=== PATIENT | female | born 1930 | race Caucasian/White ===

== ENCOUNTER 2018-01-03 10:34 | Inpatient (IN) | payer MEDICARE, OTHER ==
[~2018-01-03] VITALS: Ht 165.1 cm; Wt 97.4 kg
[~2018-01-03 10:34] MED LIST: ACET325 PO; AMLO5TAB22 PO; BENZ100 PO; CAPT50 PO; CEPH250 PO; COUG100S2 PO; DABI150 PO; DUONI NEB; FURO20 PO; GABA400 PO; KLOR20TA6 PO; METH10003 SL; OS-CTAB3 PO; OXYB5TAB33 PO; PRED10 PO; SENE8.6T PO; SERT-132 PO; SIMV20 PO; SYMB160A INH; VITA-13 PO; [UNRECOGNIZED DRUG - CODE] PO
[2018-01-03 10:49] VITALS: BP 115/69; PULSE 100; RESP 19; TEMP 98.3; O2SAT 94
[2018-01-03] MEDS ORDERED: SODIUM CHLORIDE 0.9% FLUSH 10 ML FLUSH IVF PRN (11:15)
--- NOTE | 2018-01-03 11:21 | PD ---
HPI Chief Complaint: Fall Time Seen by Provider: 11:04 Travel History International Travel<30 days: No Contact w/Intl Traveler<30days: No Traveled to known affect area: No History of Present Illness HPI 87 year old female presents to the emergency department for evaluation of cough , shortness of breath, fevers, generalized weakness. Patient's daughter is at bedside and give a lot of the history. She states the patient has been having a cough for approximately a month. She states that she saw her physician the beginning of December and was given a prescription for Keflex. Her symptoms did not improve. She went back recently and antihistamine was started. Lab work was ordered and chest x-ray was ordered. She states that she was also ordered Levaquin, but this has not yet been started due to the fact that he can get lab work until Thursday. The patient started running fevers up to 100.7 yesterday. She woke up with a low-grade fever this morning as well. The patient reports shortness of breath. She denies chest pain. She got up this morning with the help of an aide at her facility and her legs gave out due to her weakness and she fell. She states she hit her nose against the question of a walker, but did not hit her head. The aide guided her down to the ground. Patient denies any headache. She denies any abdominal pain. She states she was nauseated yesterday, but not today. Patient states she is constipated and has not had a bowel movement in 4 days. She denies any abdominal pain. She reports some chronic low back pain. Patient has PMH of diabetes, CHF, atrial fibrillation, hypertension, diabetes, COPD. No exacerbating or alleviating factors. Moderate severity. PFSH Past Medical History Hx Anticoagulant Therapy: Yes Arthritis: Yes Asthma: No Autoimmune Disease: No Anxiety: Yes Heart Rhythm Problems: Yes (AFIB) Cancer: Yes (BREAST CANCER) Cardiovascular Problems: Yes ([place]) High Cholesterol: No Chemotherapy: No Chest Pain: No Congestive Heart Failure: Yes COPD: No Cerebrovascular Accident: No Diabetes: Yes Patient Takes Glucophage: No Endocrine: Yes Gastrointestinal Disorders: Yes (chronic constipation ) GERD: Yes Genitourinary: No Hiatal Hernia: No Hypertension: Yes Immune Disorder: No Musculoskeletal: Yes Neurologic: No Psychiatric: No Reproductive: No Respiratory: Yes (bronchitis ) Immunizations Current: Yes Migraines: No Radiation Therapy: Yes Seizures: No Sickle Cell Disease: No Sleep Apnea: No Thyroid Disease: Yes Ulcer: No PNEUMOCCOCAL Vaccine (Year): 1 ?: Not Menopausal: Yes Para: 3 Past Surgical History Section: Yes Eye Surgery: Yes (cataracts removed bilateral) Neurologic Surgery: Yes (LUMBAR LAMINECTOMY (2009)) Oral Surgery: Yes (tonsillectomy) Thoracic Surgery: Yes (JUL, AUG 2010) Other Surgery: Yes Social History Alcohol Use: Yes (occ glass of wine) Tobacco Use: No Substance Use: No Allergies-Medications (Allergen,Severity, Reaction): Coded Allergies: albuterol (Verified Allergy, Unknown, 01/03/18) Reported Meds & Prescriptions Reported Meds & Active Scripts Active Reported [place] (Hydrocodone-Acetaminophen) 7.5-325 mg Tab 1 Tab PO QID Vitamin D3 (Cholecalciferol) 1,000 Unit Tab 1,000 Units PO DAILY Celebrex (Celecoxib) 200 Mg Cap 200 Mg PO DAILY Prednisone 10 Mg Tab 10 Mg PO DAILY Losartan (Losartan Potassium) 50 Mg Tab 50 Mg PO DAILY Furosemide 40 Mg Tab 40 Mg PO DAILY Pradaxa (Dabigatran) 150 Mg Cap 150 Mg PO BID Captopril 50 Mg Tab 50 Mg PO BIDAC Take 1 hour before meals. Prilosec (Omeprazole Magnesium) 20 Mg Tab 1 Cap PO DAILY Polyethylene Glycol 3350 Powder (Polyethylene Glycol) 17 Gram Pow 17 Gm PO DAILY Calcium 500 +D (Calcium Carbonate-Cholecalciferol) 500-400 Mg-Unit Tab 1 Tab PO DAILY Docusate Sodium-Senna (Sennosides-Docusate Sodium) 8.6-50 Mg Tab 1 Tab PO HS Potassium Chloride ER (Potassium Chloride) 20 Meq Tab 20 Meq PO DAILY Atrovent HFA 12.9 GM Inh (Ipratropium [place]) 17 Mcg/Actuation Aer 2 Puff INH TID Januvia (Sitagliptin Phosphate) 100 Mg Tab 100 Mg PO DAILY Bumetanide 1 Mg Tab 1 Mg PO DAILY Cymbalta DR (Duloxetine HCl) 20 Mg Capdr 20 Mg PO DAILY Symbicort Inh (Budesonide/Formoterol Fumarate) 160-4.5 Mcg/Act Aero 2 Puff INH Q12HR Vitamin B-12 (Cyanocobalamin) 1,000 Mcg Tab 1,000 Mcg PO DAILY Norvasc (Amlodipine Besylate) 5 Mg Tab 5 Mg PO DAILY Xanax (Alprazolam) 0.25 Mg Tab 0.25 Mg PO DAILY PRN Simvastatin 20 Mg Tab 20 Mg PO DAILY Levothyroxine (Levothyroxine Sodium) 100 Mcg Tab 100 Mcg PO DAILY Gabapentin 300 Mg Cap 300 Mg PO TID Benadryl Allergy (Diphenhydramine HCl) 25 Mg Cap 1 Cap PO DAILY Zoloft (Sertraline HCl) 100 Mg Tab 100 Mg PO DAILY Keflex (Cephalexin) 500 Mg Cap 500 Mg PO TID Review of Systems Except as stated in HPI: all other systems reviewed are Neg Physical Exam Narrative GENERAL: Well-nourished, well-developed female patient, afebrile. SKIN: Focused skin assessment warm/dry. HEAD: Normocephalic. Atraumatic EYES: No scleral icterus. No injection or drainage. NECK: Supple, trachea midline. No JVD or lymphadenopathy. CARDIOVASCULAR: Regular rate and rhythm without murmurs, gallops, or rubs. RESPIRATORY: Breath sounds equal bilaterally. Patient appears short of breath and is tachypneic on exam. Lung sounds diminished throughout GASTROINTESTINAL: Abdomen soft, non-tender, nondistended. MUSCULOSKELETAL: No cyanosis, or edema. BACK: Nontender without obvious deformity. No CVA tenderness. Data Data Last Documented VS Vital Signs Date Time Temp Pulse Resp B/P (MAP) Pulse Ox O2 Delivery O2 Flow Rate FiO2 01/03/18 10:49 98.3 100 19 115/69 (84) 94 Nasal Cannula 2.00 Orders Orders Complete Blood Count With Diff (01/03/18 11:15) Comprehensive Metabolic Panel (01/03/18 11:15) B-Type Natriuretic Peptide (01/03/18 11:15) Act Partial Throm Time (Ptt) (01/03/18 11:15) Prothrombin Time / Inr (Pt) (01/03/18 11:15) Magnesium (Mg) (01/03/18 11:15) Ckmb (Isoenzyme) Profile (01/03/18 11:15) Troponin I (01/03/18 11:15) Urinalysis - C+S If Indicated (01/03/18 11:15) Influenzae A/B Antigen (01/03/18 11:15) Blood Culture (01/03/18 11:15) Iv Access Insert/Monitor (01/03/18 11:15) Electrocardiogram (01/03/18 11:15) Ecg Monitoring (01/03/18 11:15) Oximetry (01/03/18 11:15) Oxygen Administration (01/03/18 11:15) Chest, Single Ap (01/03/18 11:15) Sodium Chloride 0.9% Flush (Ns Flush) (01/03/18 11:15) Lactic Acid Sepsis Protocol (01/03/18 11:15) Cath For Specimen (01/03/18 11:17) Ct Pulmonary Angiogram (01/03/18 ) Sodium Chlorid 0.9% 500 Ml Inj (Ns 500 M (01/03/18 13:00) Urine Culture (01/03/18 11:40) Iodixanol 320 Inj (Rad Ct) (Visipaque 32 (01/03/18 13:40) Ceftriaxone Inj (Rocephin Inj) (01/03/18 14:00) Methylprednisolone So Succ Inj (Solumedr (01/03/18 14:00) Ipratropium Neb (Atrovent Neb) (01/03/18 14:00) Labs Laboratory Tests Test 01/03/18 11:40 White Blood Count 9.4 TH/MM3 Red Blood Count 3.83 MIL/MM3 Hemoglobin 11.9 GM/DL Hematocrit 35.9 % Mean Corpuscular Volume 93.9 FL Mean Corpuscular Hemoglobin 31.0 PG Mean Corpuscular Hemoglobin Concent 33.1 % Red Cell Distribution Width 14.9 % Platelet Count 88 TH/MM3 Mean Platelet Volume 9.8 FL Neutrophils (%) (Auto) 89.7 % Lymphocytes (%) (Auto) 1.5 % Monocytes (%) (Auto) 8.6 % Eosinophils (%) (Auto) 0.1 % Basophils (%) (Auto) 0.1 % Neutrophils # (Auto) 8.4 TH/MM3 Lymphocytes # (Auto) 0.1 TH/MM3 Monocytes # (Auto) 0.8 TH/MM3 Eosinophils # (Auto) 0.0 TH/MM3 Basophils # (Auto) 0.0 TH/MM3 CBC Comment AUTO DIFF Differential Total Cells Counted 100 Neutrophils % (Manual) 64 % Band Neutrophils % 32 % Lymphocytes % 1 % Monocytes % 3 % Neutrophils # (Manual) 9.0 TH/MM3 Differential Comment FINAL DIFF MANUAL Toxic Granulation 1+ Toxic Vacuolation PRESENT Platelet Estimate LOW Platelet Morphology Comment NORMAL Red Cell Morphology Comment NORMAL Prothrombin Time 11.0 SEC Prothromb Time International Ratio 1.1 RATIO Activated Partial Thromboplast Time 25.3 SEC Urine Color YELLOW Urine Turbidity CLOUDY Urine pH 5.5 Urine Specific [place] 1.016 Urine Protein 30 mg/dL Urine Glucose (UA) 300 mg/dL Urine Ketones NEG mg/dL Urine Occult Blood MOD Urine Nitrite NEG Urine Bilirubin NEG Urine Urobilinogen LESS THAN 2.0 MG/DL Urine Leukocyte Esterase LARGE Urine RBC 11 /hpf Urine WBC /hpf Urine WBC Clumps FEW Urine Squamous Epithelial Cells 1 /hpf Urine Transitional Epithelial Cells <1 /hpf Urine Bacteria MANY /hpf Urine Hyaline Casts 23 /lpf Urine Mucus FEW /lpf Microscopic Urinalysis Comment CATH-CULTURE IND Blood Urea Nitrogen 33 MG/DL Creatinine 1.52 MG/DL Random Glucose 374 MG/DL Total Protein 6.4 GM/DL Albumin 2.8 GM/DL Calcium Level 9.1 MG/DL Magnesium Level 1.8 MG/DL Alkaline Phosphatase 97 U/L Aspartate Amino Transf (AST/SGOT) 11 U/L Alanine Aminotransferase (ALT/SGPT) 15 U/L Total Bilirubin 0.5 MG/DL Sodium Level 136 MEQ/L Potassium Level 4.1 MEQ/L Chloride Level 97 MEQ/L Carbon Dioxide Level 30.3 MEQ/L Anion Gap 9 MEQ/L Estimat Glomerular Filtration Rate 32 ML/MIN Lactic Acid Level 1.9 mmol/L Total Creatine Kinase 35 U/L Troponin I LESS THAN 0.02 NG/ML B-Type Natriuretic Peptide 137 PG/ML MDM Medical Decision Making Medical Screen Exam Complete: Yes Emergency Medical Condition: Yes Medical Record Reviewed: Yes Differential Diagnosis Pneumonia versus sepsis versus URI versus influenza versus viral syndrome versus ACS versus electrolyte abnormality Narrative Course 87-year-old female presents to the emergency department via EMS for evaluation of generalized weakness, fever, shortness of breath, cough. According to the nurse, patient's oxygen saturation was 89% on room air upon arrival. EKG, CBC, CMP, BNP, magnesium, CK, troponin, lactic acid, PTT, PT/INR, influenza, UA, blood cultures 2 were ordered and pending. Chest x-ray is ordered and pending. EKG shows atrial fibrillation, heart rate 95, no acute ST change. CBC shows normal WBC count of 9.4, by 32 band neutrophils,, toxic granulation and toxic vacuolation. CMP shows hyperglycemia 374, BUN 33, creatinine 1.52. Magnesium is 1.8. CK is 35. Troponin is less than 0.02. Lactic acid is 1.9. BNP is 137. Coags are unremarkable. Influenza is negative. UA shows large leukocyte Estrace, innumerable WBCs and few WBC clumps with many bacteria. Chest x-ray shows no focal infiltrate or vascular congestion. Patient is given normal saline [address] pulmonary angiogram is ordered and shows No evidence of pulmonary embolism; Minimal scattered fibrotic scarring and peripheral bleb formation bilaterally; Cardiomegaly and coronary artery calcifications; Mild splenomegaly; Degenerative changes, scoliosis and multiple chronic compression deformities involving the thoracic spine; Small hiatal hernia. Patient is given Rocephin 1 g IV for UTI. Her daughter states she has reactions to albuterol. She is given ipratropium nebulizer and Solu-Medrol 125 mg IV. Hospitalist is paged for admission. Diagnosis Primary Impression: Urinary tract infection Qualified Codes: N30.01 - Acute cystitis with hematuria Additional Impressions: COPD exacerbation Hypoxia Admitting Information Admitting Physician Requests: Admit Suni Rosa Jan 03, 2018 11:21
--- NOTE | 2018-01-03 11:42 | RADRPT ---
EXAM DATE/TIME: 01/03/2018 11:25 [facility] COMPARISON: CHEST SINGLE AP, April 02, 2016, 14:12. INDICATIONS : Short of breath, cough MEDICAL HISTORY : Chronic obstructive pulmonary disease. Hypertension Diabetes mellitus type II. SURGICAL HISTORY : None. ENCOUNTER: Initial ACUITY: 2 weeks PAIN SCORE: 0/10 LOCATION: chest FINDINGS: The heart is enlarged. The pulmonary vascular pattern is normal. The lungs are clear. CONCLUSION: Cardiomegaly. No focal infiltrate or pulmonary vascular congestion. Navneet Guevara MD on January 03, 2018 at 11:39 Board Certified Radiologist. This report was verified electronically.
[2018-01-03 12:21] LABS: AUTOMATED NEUTROPHIL # 8.4 TH/MM3 (1.8-7.7); BASOPHIL % 0.1 % (0.0-2.0); EOSINOPHIL % 0.1 % (0.0-4.0); HEMATOCRIT 35.9 % (35.0-46.0); HEMOGLOBIN 11.9 GM/DL (11.6-15.3); LYMPH % 1.5 % (9.0-44.0); LYMPHOCYTE # 0.1 TH/MM3 (1.0-4.8); MEAN CELL VOLUME 93.9 FL (80.0-100.0); MEAN CORPUSCULAR HGB CONC 33.1 % (32.0-36.0); MEAN PLATELET VOLUME 9.8 FL (7.0-11.0); MONO % 8.6 % (0.0-8.0); MONOCYTE # 0.8 TH/MM3 (0-0.9); NEUT % 89.7 % (16.0-70.0); PLATELET COUNT 88 TH/MM3 (150-450); RED BLOOD COUNT 3.83 MIL/MM3 (4.00-5.30); RED CELL DISTRIBUTION WIDTH 14.9 % (11.6-17.2); WHITE BLOOD COUNT 9.4 TH/MM3 (4.0-11.0)
[2018-01-03 12:29] LABS: INTERNATIONAL NORMALIZED RATIO 1.1 RATIO
[2018-01-03] MEDS ORDERED: IPRA17I INH (12:39)
[2018-01-03] MEDS ORDERED: PRED10 PO (12:39)
[2018-01-03] MEDS ORDERED: LEVO100T5 PO (12:39)
[2018-01-03] MEDS ORDERED: SYMB160A INH (12:39)
[2018-01-03] MEDS ORDERED: FURO40TA PO (12:39)
[2018-01-03] MEDS ORDERED: AMLO5 PO (12:39)
[2018-01-03] MEDS ORDERED: PRAD150C PO (12:39)
[2018-01-03] MEDS ORDERED: ZOLO100T PO (12:39)
[2018-01-03] MEDS ORDERED: PRIL20TA2 PO (12:39)
[2018-01-03] MEDS ORDERED: HYDR-3288 PO (12:39)
[2018-01-03] MEDS ORDERED: POLY17S PO (12:39)
[2018-01-03] MEDS ORDERED: GABA300C5 PO (12:39)
[2018-01-03] MEDS ORDERED: BENA25CA4 PO (12:39)
[2018-01-03] MEDS ORDERED: DULO20 PO (12:39)
[2018-01-03] MEDS ORDERED: POTA-163 PO (12:39)
[2018-01-03] MEDS ORDERED: CAPT50TA PO (12:39)
[2018-01-03] MEDS ORDERED: DOCU8.6T PO (12:39)
[2018-01-03] MEDS ORDERED: CELE200C PO (12:39)
[2018-01-03] MEDS ORDERED: VITA100018 PO (12:39)
[2018-01-03] MEDS ORDERED: BUME1TAB PO (12:39)
[2018-01-03] MEDS ORDERED: ALPR.25 PO (12:39)
[2018-01-03] MEDS ORDERED: VITA10002 PO (12:39)
[2018-01-03] MEDS ORDERED: LOSA50TA PO (12:39)
[2018-01-03] MEDS ORDERED: SIMV20TA PO (12:39)
[2018-01-03] MEDS ORDERED: SITA1TAB2 PO (12:39)
[2018-01-03] MEDS ORDERED: CEPH-460 PO (12:39)
[2018-01-03] MEDS ORDERED: CALC1TAB12 PO (12:39)
[2018-01-03 12:43] LABS: ALBUMIN 2.8 GM/DL (3.4-5.0); ALT (GPT) 15 U/L (10-53); AST (GOT) 11 U/L (15-37); BICARBONATE 30.3 MEQ/L (21.0-32.0); BLOOD UREA NITROGEN 33 MG/DL (7-18); CALCIUM 9.1 MG/DL (8.5-10.1); CHLORIDE 97 MEQ/L (98-107); CREATININE 1.52 MG/DL (0.50-1.00); GLOMERULAR FILTRATION RATE 32 ML/MIN (>89); GLUCOSE,RANDOM 374 MG/DL (74-106); MAGNESIUM 1.8 MG/DL (1.5-2.5); SODIUM (NA) 136 MEQ/L (136-145)
[2018-01-03 12:46] LABS: ALKALINE PHOSPHATASE 97 U/L (45-117); TOTAL BILIRUBIN ADULT 0.5 MG/DL (0.2-1.0); TOTAL PROTEIN 6.4 GM/DL (6.4-8.2); TROPONIN I LESS THAN 0.02 NG/ML (0.02-0.05)
[2018-01-03 12:52] LABS: BACTERIA, URINE MANY /hpf; BILIRUBIN, URINE NEG (NEG); BLOOD, URINE MOD (NEG); GLUCOSE,URINE 300 mg/dL (NEG); HYALINE CAST, URINE 23 /lpf (RARE); KETONE, URINE NEG (NEG); MUCUS URINE FEW /lpf (OCC); NITRITE,URINE NEG (NEG); PH, URINE 5.5 (5.0-8.5); SQUAMOUS EPITHELIAL CELL URINE 1 /hpf (0-5); TRANSITIONAL EPI CELLS, URINE <1 /hpf; URINE COLOR YELLOW (YELLW/STRAW); URINE LEUKOCYTE ESTERASE LARGE (NEG); WHITE BLOOD CELL CLUMPS FEW
[2018-01-03] MEDS ORDERED: SODIUM CHLORID 0.9% 500 ML INJ 500 ML IV ONE (13:00)
[2018-01-03 13:11] LABS: BANDS 32 % (0-6); LYMPHOCYTES 1 % (9-44); MONOCYTES 3 % (0-8); POLYS (SEG NEUTROPHILS) 64 % (16-70); TOXIC GRANULATION 1+ (NORMAL); TOXIC VACUOLATION PRESENT (NONE SEEN)
[2018-01-03] MEDS ORDERED: IODIXANOL 320 MG/ML 10 ML VIAL (for Rad CT) IVCONTRAST ONE (13:40)
--- NOTE | 2018-01-03 13:50 | RADRPT ---
EXAM DATE/TIME: 01/03/2018 13:21 [facility] COMPARISON: No previous studies available for comparison. INDICATIONS : General weakness, cough,recent fall. IV CONTRAST: 50 cc Visipaque (iodixanol) IV RADIATION DOSE: 6.02 CTDIvol (mGy) MEDICAL HISTORY : Cardiovascular disease. Congestive heart failure. Hypertension.Ca breast,GERD,Diabetes,Rad Tx SURGICAL HISTORY : Cataracts ENCOUNTER: Initial ACUITY: 3 days PAIN SCALE: 0/10 LOCATION: chest TECHNIQUE: Volumetric scanning of the chest was performed using a pulmonary embolism protocol MIP images were re constructed. Using automated exposure control and adjustment of the mA and/or kV according to patien t size, radiation dose was kept as low as reasonably achievable to obtain optimal diagnostic quality images. DICOM format image data is available electronically for review and comparison. Follow-up recommendations for detected pulmonary nodules are based at a minimum on nodule size and pa tient risk factors according to Fleischner Society Guidelines. FINDINGS: PULMONARY ARTERIES: No filling defects are seen in the pulmonary arteries through the segmental level. LUNGS: Scattered peripheral fibrotic scarring and minimal subpleural bleb formation is noted bilaterally. No focal infiltrate or congestion is noted. No pulmonary nodule or mass is noted. PLEURAE: There is no pleural thickening or pleural effusion. MEDIASTINUM: There is good visualization of the great vessels of the middle mediastinum. No evidence of mediastin al or hilar adenopathy/mass. Cardiomegaly and coronary artery calcifications are noted. MUSCULOSKELETAL: Degenerative changes, scoliosis and multiple chronic compression deformities are noted within the tho racic spine. MISCELLANEOUS: The visualized upper abdominal organs demonstrate no acute abnormality. Small hiatal hernia is noted. Mild splenomegaly is noted. CONCLUSION: 1. No evidence of pulmonary embolism. 2. Minimal scattered fibrotic scarring and peripheral bleb formation bilaterally. 3. Cardiomegaly and coronary artery calcifications. 4. Mild splenomegaly. 5. Degenerative changes, scoliosis and multiple chronic compression deformities involving the thoraci c spine. 6. Small hiatal hernia. Navneet Guevara MD on January 03, 2018 at 13:39 Board Certified Radiologist. This report was verified electronically.
[2018-01-03] MEDS ORDERED: methylPREDNISolone SOD SUCC 125 MG/2 ML VIAL IV PUSH ONE (14:00)
[2018-01-03] MEDS ORDERED: RESP: IPRATROPIUM 0.5 MG/2.5 ML NEB NEB ONE (14:00)
[2018-01-03] MEDS ORDERED: cefTRIAXone INJ 1,000 MG in SODIUM CHLORIDE 0.9% INJ 100 ML IV ONE (14:00)
[2018-01-03] MEDS ORDERED: ONDANSETRON HCL 4 MG/2 ML VIAL IVP PRN (15:15)
[2018-01-03] MEDS ORDERED: SENNOSIDES 8.6 MG TAB PO PRN (15:15)
[2018-01-03] MEDS ORDERED: RESP: IPRATROPIUM 0.5 MG/2.5 ML NEB NEB PRN (15:15)
[2018-01-03] MEDS ORDERED: NALOXONE HCL 0.4 MG/ML AMP IV PUSH PRN (15:15)
[2018-01-03] MEDS ORDERED: MAGNESIUM HYDROXIDE SUSP 30 ML CUP PO PRN ×2 (15:15→18:15)
[2018-01-03] MEDS ORDERED: LACTULOSE SYRUP 20 GM/30 ML CUP PO PRN (15:15)
[2018-01-03] MEDS ORDERED: SODIUM CHLORIDE 0.9% FLUSH 10 ML FLUSH IV FLUSH PRN (15:15)
[2018-01-03] MEDS ORDERED: BISACODYL 10 MG SUPP RECTAL PRN (15:15)
[2018-01-03] MEDS: RESP: IPRATROPIUM 0.5 MG/2.5 ML NEB NEB SCH (15:44)
[2018-01-03] MEDS ORDERED: LEVEMIR SQ (15:48)
[2018-01-03] MEDS ORDERED: DEXTROSE 50% IN WATER 50 ML VIAL(D50) IV PUSH PRN ×2 (16:00→17:45)
[2018-01-03] MEDS ORDERED: GLUCAGON 1 MG/ML VIAL OTHER PRN ×2 (16:00→17:45)
[2018-01-03] MEDS ORDERED: HEPARIN SODIUM - SQ 10,000 UNITS/ML VIAL SQ SCH (17:00)
[2018-01-03] MEDS: cefTRIAXone INJ 1,000 MG in SODIUM CHLORIDE 0.9% INJ 100 ML IV SCH (17:00)
[2018-01-03] MEDS ORDERED: INSULIN ASPART SUPPLEMENTAL SCALE SQ SCH (17:00)
[2018-01-03 17:17] VITALS: BP 169/86; PULSE 92; RESP 23; O2SAT 93
[2018-01-03] MEDS ORDERED: ALPRAZolam 0.25 MG TAB PO PRN (17:30)
[2018-01-03 17:36] VITALS: BP 120/70; PULSE 91; RESP 18; TEMP 98.2; O2SAT 93
--- NOTE | 2018-01-03 17:43 | HHI.HP ---
[facility] Santos Aguirre M.D. Admission Diagnosis UTI, COPD exacerbation Diagnoses: Travel History International Travel<30 Days: No Contact w/Intl Traveler <30 Da: No Traveled to Known Affected Are: No History of Present Illness Patient is an 87-year-old female with past medical history of hypothyroidism, CHF, atrial fibrillation, hypertension, diabetes insulin-dependent, anxiety, hyperlipidemia, chronic back pain who presented to the emergency room because she was not feeling well and has been progressively feeling more and more tired. She states that she woke up yesterday, felt sick to her stomach with nausea. She denies any vomiting at that time. She states she has been sick for 3 weeks, feeling "lousy ". She has been working with her physical therapists trying to get strong enough however she has been progressively feeling weaker. Yesterday she could not get out of bed. She has been having a "hacking cough", nonproductive, for the past 4 weeks. She was put on Keflex at the beginning of December with no improvement. She went to see her primary care physician because she could not get in to see her turf manager Dr. Le fast enough and was started on an antihistamine. She has not started it yet. She had a chest x-ray which was read as negative. Patient complains of shortness of breath. Patient also complains of chills and was told she had a fever of 100.7 by the nurse that came to see her at her house. Her appetite is poor. She denies any burning with urination however she has urinary incontinence therefore she cannot tell she has urinary frequency. Review of Systems Except as stated in HPI: all other systems reviewed are Neg Past Family Social History Past Medical History hypothyroidism, CHF, atrial fibrillation, hypertension, diabetes insulin- dependent, anxiety, hyperlipidemia, chronic back pain Past Surgical History Cataract surgery, tonsillectomy, lumbar laminectomy in 2010, right breast lumpectomy, left femoral embolectomy complicated by abscess formation and status post I&D Allergies: Coded Allergies: albuterol (Verified Allergy, Unknown, 01/03/18) Family History Mother and father had heart issues. Mother at age 91, had CVAs and fall Social History Smoked for 2 years many many years ago, states she smoked less than a pack a day. Will drink wine 2 times a week. Denies illegal drug use Physical Exam Vital Signs Vital Signs Date Time Temp Pulse Resp B/P (MAP) Pulse Ox O2 Delivery O2 Flow Rate FiO2 01/03/18 17:23 01/03/18 17:17 92 23 169/86 (113) 93 01/03/18 10:49 98.3 100 19 115/69 (84) 94 Nasal Cannula 2.00 01/03/18 10:49 Nasal Cannula 2.00 Physical Exam GENERAL: Pleasant elderly female, appears weak, mild hoarseness noted when pt talks SKIN: No rashes. Cool and dry. HEAD: Atraumatic. Normocephalic. EYES: Pupils equal round and reactive. Extraocular motions intact. No scleral icterus. No injection or drainage. ENT: Nose without drainage. Throat without erythema, tonsillar hypertrophy or exudate. Uvula midline. Airway patent. NECK: Trachea midline. CARDIOVASCULAR: Irregularly irregular with no murmurs RESPIRATORY: Decreased breath sounds and somewhat distant. No wheezing, no crackles. Patient does pause to complete her sentences. GASTROINTESTINAL: Abdomen soft, obese, non-tender, nondistended. No guarding. MUSCULOSKELETAL: Extremities without edema. Moves extremities with no difficulty. Uses a walker as baseline. NEUROLOGICAL: Awake and alert. Normal speech. Laboratory Laboratory Tests Test 01/03/18 11:40 White Blood Count 9.4 Red Blood Count 3.83 Hemoglobin 11.9 Hematocrit 35.9 Mean Corpuscular Volume 93.9 Mean Corpuscular Hemoglobin 31.0 Mean Corpuscular Hemoglobin Concent 33.1 Red Cell Distribution Width 14.9 Platelet Count 88 Mean Platelet Volume 9.8 Neutrophils (%) (Auto) 89.7 Lymphocytes (%) (Auto) 1.5 Monocytes (%) (Auto) 8.6 Eosinophils (%) (Auto) 0.1 Basophils (%) (Auto) 0.1 Neutrophils # (Auto) 8.4 Lymphocytes # (Auto) 0.1 Monocytes # (Auto) 0.8 Eosinophils # (Auto) 0.0 Basophils # (Auto) 0.0 CBC Comment AUTO DIFF Differential Total Cells Counted 100 Neutrophils % (Manual) 64 Band Neutrophils % 32 Lymphocytes % 1 Monocytes % 3 Neutrophils # (Manual) 9.0 Differential Comment FINAL DIFF MANUAL Toxic Granulation 1+ Toxic Vacuolation PRESENT Platelet Estimate LOW Platelet Morphology Comment NORMAL Red Cell Morphology Comment NORMAL Prothrombin Time 11.0 Prothromb Time International Ratio 1.1 Activated Partial Thromboplast Time 25.3 Urine Color YELLOW Urine Turbidity CLOUDY Urine pH 5.5 Urine Specific [place] 1.016 Urine Protein 30 Urine Glucose (UA) 300 Urine Ketones NEG Urine Occult Blood MOD Urine Nitrite NEG Urine Bilirubin NEG Urine Urobilinogen LESS THAN 2.0 Urine Leukocyte Esterase LARGE Urine RBC 11 Urine WBC Urine WBC Clumps FEW Urine Squamous Epithelial Cells 1 Urine Transitional Epithelial Cells <1 Urine Bacteria MANY Urine Hyaline Casts 23 Urine Mucus FEW Microscopic Urinalysis Comment CATH-CULTURE IND Blood Urea Nitrogen 33 Creatinine 1.52 Random Glucose 374 Total Protein 6.4 Albumin 2.8 Calcium Level 9.1 Magnesium Level 1.8 Alkaline Phosphatase 97 Aspartate Amino Transf (AST/SGOT) 11 Alanine Aminotransferase (ALT/SGPT) 15 Total Bilirubin 0.5 Sodium Level 136 Potassium Level 4.1 Chloride Level 97 Carbon Dioxide Level 30.3 Anion Gap 9 Estimat Glomerular Filtration Rate 32 Lactic Acid Level 1.9 Total Creatine Kinase 35 Troponin I LESS THAN 0.02 B-Type Natriuretic Peptide 137 Date/Time Source Procedure Growth Status 01/03/18 11:40 Blood Peripheral Aerobic Blood Culture Pending Received 01/03/18 11:40 Blood Peripheral Anaerobic Blood Culture Pending Received 01/03/18 11:40 Nasal Aspirate Influenza Types A,B Antigen (LENNIE) - Final NEGATIVE FOR FLU A AND B ANTIGEN.... Complete 01/03/18 11:40 Urine Catheterized Urine Urine Culture Pending Received Result Diagram: 01/03/18 1140 01/03/18 1140 Caprini VTE Risk Assessment Caprini VTE Risk Assessment: Mod/High Risk (score >= 2) Caprini Risk Assessment Model Point Value = 1 Point Value = 2 Point Value = 3 Point Value = 5 Age 41-60 Minor surgery BMI > 25 kg/m2 Swollen legs Varicose veins or History of unexplained or recurrent spontaneous Oral contraceptives or hormone replacement Sepsis (< 1 month) Serious lung disease, including pneumonia (< 1 month) Abnormal pulmonary function Acute myocardial infarction Congestive heart failure (< 1 month) History of inflammatory bowel disease Medical patient at bed rest Age 61-74 Arthroscopic surgery Major open surgery (> 45 min) Laparoscopic surgery (> 45 min) Malignancy Confined to bed (> 72 hours) Immobilizing plaster cast Central venous access Age >= 75 History of VTE Family history of VTE Factor V Leiden Prothrombin [id number] Lupus anticoagulant Anticardiolipin antibodies Elevated serum homocysteine Heparin-induced thrombocytopenia Other congenital or acquired thrombophilia Stroke (< 1 month) Elective arthroplasty Hip, pelvis, or leg fracture Acute spinal cord injury (< 1 month) Prophylaxis Regimen Total Risk Factor Score Risk Level Prophylaxis Regimen 0-1 Low Early ambulation 2 Moderate Order ONE of the following: *Sequential Compression Device (SCD) *Heparin 5000 units SQ BID 3-4 Higher Order ONE of the following medications: *Heparin 5000 units SQ TID *Enoxaparin/Lovenox 40 mg SQ daily (WT < 150 kg, CrCl > 30 mL/min) *Enoxaparin/Lovenox 30 mg SQ daily (WT < 150 kg, CrCl > 10-29 mL/min) *Enoxaparin/Lovenox 30 mg SQ BID (WT < 150 kg, CrCl > 30 mL/min) AND/OR *Sequential Compression Device (SCD) 5 or more Highest Order ONE of the following medications: *Heparin 5000 units SQ TID (Preferred with Epidurals) *Enoxaparin/Lovenox 40 mg SQ daily (WT < 150 kg, CrCl > 30 mL/min) *Enoxaparin/Lovenox 30 mg SQ daily (WT < 150 kg, CrCl > 10-29 mL/min) *Enoxaparin/Lovenox 30 mg SQ BID (WT < 150 kg, CrCl > 30 mL/min) AND *Sequential Compression Device (SCD) Assessment and Plan Assessment and Plan 87-year-old female with: 1- sepsis/UTI: Heart rate at 100, no leukocytosis however she does have bandemia at 32, source would be a UTI. UA with large leukocyte esterase, many bacteria, and innumerable WBC with clumps. Urine culture and blood cultures pending. Patient had a temperature of 100.7 at home. None recorded here in the emergency room. Repeat CBC in the morning. We will treat with Rocephin IV every 24 hours. 2- COPD exacerbation: s/p 125mg IV solu-medrol in ED. Continue breather treatments ipratropium scheduled and prn. consult Dr. Le, pt's pulm per pt' s request. Pt known to him. Pt did try to get to see him in his office but couldn't get in soon enough. added flonase for possible post nasal gtt, continue home symbicort. add azithromycin, has had a cough x 4 weeks not responding to keflex. 3-hypothyroidism: Resume patient's home dose of Synthroid 4- CHF: Stable. Heart healthy diet with fluid restriction at 1500 mL's per day. Continue patient's the Lasix. Replete potassium and continues potassium supplementation. 5-ESRD stage III per daughter: Creatinine noted to be 1.52 with baseline of 0.82 on 04/03/16 per records (no recent Cr available). Patient does not follow with a ladle builder. 6- Atrial fibrillation: Stable. continue pradaxa. Apparently per daughter she was supposed to be on digoxin however this is not listed on [facility] MAR. At this time, since pt does have hx of CHF, will place her on metoprolol 25mg po BID w holding parameters. Daughter to bring med rec as from my review of pt' s MAR at [facility], there are some concerns that this med rec may have not been reviewed. ( i.e pt being on both lasix and bumex, captopril/losartan...). 7- Hypertension: continue captopril, amlodipine. (per daughter pt does have stage III renal disease) 8. Diabetes insulin-dependent: resume pt's home dose of levemir. cover w medium ISS. continue Januvia but renally dose it. monitor BS. 9- anxiety: resume med 10- Hyperlipidemia: resume med 11-Chronic back pain: resume home meds. resume stool softeners as well. DVT proph: pradaxa Code Status full Discussed Condition With Pt, Her daughter, ER staff Eliza Mccormick MD Jan 03, 2018 17:43
[2018-01-03] MEDS: ACETAMINOPHEN/HYDROcodone 325 MG/7.5 MG TAB PO SCH ×2 (18:04→22:23)
[2018-01-03] MEDS: GABAPENTIN 300 MG CAP PO SCH (18:04)
[2018-01-03] MEDS: SODIUM CHLOR 0.9% 1000 ML INJ 1,000 ML IV SCH (18:18)
[2018-01-03] MEDS: AZITHROMYCIN 250 MG TAB PO SCH (18:24)
[2018-01-03 19:46] VITALS: PULSE 86
[2018-01-03 20:00] VITALS: BP 117/72; PULSE 96; RESP 18; TEMP 98.1; O2SAT 95
[2018-01-03] MEDS ORDERED: DOCUSATE SODIUM 50 MG/SENNA 8.6 MG TAB PO SCH (21:00)
[2018-01-03] MEDS: METOPROLOL TARTRATE 25 MG TAB PO SCH (22:23)
[2018-01-03] MEDS: DOCUSATE SODIUM 50 MG/SENNA 8.6 MG TAB PO SCH (22:25)
[2018-01-03] MEDS: DABIGATRAN ETEXILATE 150 MG CAP PO SCH (22:25)
[2018-01-03] MEDS: SODIUM CHLORIDE 0.9% FLUSH 10 ML FLUSH IV FLUSH SCH (22:26)
[2018-01-03] MEDS: INSULIN ASPART SUPPLEMENTAL SCALE SQ SCH (22:30)
[2018-01-03] MEDS: BUDESONIDE-FORMOTEROL 160/4.5 MCG INHALER INH SCH (22:43)
[2018-01-03 23:42] VITALS: PULSE 87
[2018-01-04] VITALS (15 sets, daily range): BP systolic 98–152; BP diastolic 52–80; PULSE 68–91; RESP 18–24; TEMP 97.3–98.3; O2SAT 93–98
[2018-01-04] MEDS: RESP: IPRATROPIUM 0.5 MG/2.5 ML NEB NEB SCH ×4 (03:38→19:31)
[2018-01-04] MEDS: SODIUM CHLOR 0.9% 1000 ML INJ 1,000 ML IV SCH ×2 (05:14→17:49)
[2018-01-04] MEDS: CAPTOPRIL 50 MG TAB PO SCH ×2 (05:15→17:50)
[2018-01-04 05:40] LABS: BICARBONATE 29.4 MEQ/L (21.0-32.0); CALCIUM 8.5 MG/DL (8.5-10.1); CREATININE 1.18 MG/DL (0.50-1.00)
[2018-01-04 06:21] LABS: AUTOMATED NEUTROPHIL # 8.8 TH/MM3 (1.8-7.7); BASOPHIL % 0.1 % (0.0-2.0); HEMATOCRIT 35.5 % (35.0-46.0); HEMOGLOBIN 11.8 GM/DL (11.6-15.3); LYMPH % 3.3 % (9.0-44.0); LYMPHOCYTE # 0.3 TH/MM3 (1.0-4.8); MEAN CELL VOLUME 93.2 FL (80.0-100.0); MEAN CORPUSCULAR HEMOGLOBIN 31.1 PG (27.0-34.0); MEAN CORPUSCULAR HGB CONC 33.3 % (32.0-36.0); MEAN PLATELET VOLUME 9.8 FL (7.0-11.0); MONO % 4.7 % (0.0-8.0); MONOCYTE # 0.4 TH/MM3 (0-0.9); NEUT % 91.9 % (16.0-70.0); PLATELET COUNT 100 TH/MM3 (150-450); RED BLOOD COUNT 3.81 MIL/MM3 (4.00-5.30); RED CELL DISTRIBUTION WIDTH 14.7 % (11.6-17.2); WHITE BLOOD COUNT 9.6 TH/MM3 (4.0-11.0)
[2018-01-04] MEDS: INSULIN ASPART SUPPLEMENTAL SCALE SQ SCH ×4 (09:15→21:00)
[2018-01-04] MEDS: SODIUM CHLORIDE 0.9% FLUSH 10 ML FLUSH IV FLUSH SCH ×2 (09:16→21:00)
[2018-01-04] MEDS: POTASSIUM CHLORIDE 20 MEQ CONTROLLED RELEASE TAB PO SCH (09:16)
[2018-01-04] MEDS: predniSONE 10 MG TAB PO SCH (09:16)
[2018-01-04] MEDS: BUDESONIDE-FORMOTEROL 160/4.5 MCG INHALER INH SCH ×2 (09:16→21:51)
[2018-01-04] MEDS: DULoxetine HCl DR 20 MG CAP PO SCH (09:16)
[2018-01-04] MEDS: METOPROLOL TARTRATE 25 MG TAB PO SCH ×2 (09:17→21:00)
[2018-01-04] MEDS: POLYETHYLENE GLYCOL 17 GM PKG PO SCH (09:17)
[2018-01-04] MEDS: GABAPENTIN 300 MG CAP PO SCH ×3 (09:17→17:50)
[2018-01-04] MEDS: FUROSEMIDE 40 MG TAB PO SCH (09:17)
[2018-01-04] MEDS: LEVOTHYROXINE SODIUM 100 MCG TAB PO SCH (09:18)
[2018-01-04] MEDS: PANTOPRAZOLE SOD 20 MG DELAYED RELEASE TAB PO SCH (09:18)
[2018-01-04] MEDS: amLODIPine BESYLATE 5 MG TAB PO SCH (09:18)
[2018-01-04] MEDS: DABIGATRAN ETEXILATE 150 MG CAP PO SCH ×2 (09:18→21:48)
[2018-01-04] MEDS: CHOLECALCIFEROL (VIT D3) 1000 UNIT TAB PO SCH (09:18)
[2018-01-04] MEDS: AZITHROMYCIN 250 MG TAB PO SCH (09:18)
[2018-01-04] MEDS: ACETAMINOPHEN/HYDROcodone 325 MG/7.5 MG TAB PO SCH ×4 (09:18→21:50)
[2018-01-04] MEDS: SERTRALINE HCL 100 MG TAB PO SCH (09:19)
[2018-01-04] MEDS: PRAVASTATIN SOD 40 MG TAB PO SCH (09:19)
[2018-01-04] MEDS: INSULIN DETEMIR 100 UNITS/ML VIAL SQ SCH (09:20)
--- NOTE | 2018-01-04 14:03 | HHI.PR ---
Subjective Remarks "I am feeling little better " Patient on O2 nasal cannula, creatinine improved from 1.5-1.18 Afebrile Objective Vitals Vital Signs Date Time Temp Pulse Resp B/P (MAP) Pulse Ox O2 Delivery O2 Flow Rate FiO2 01/04/18 12:04 98.3 84 22 152/80 (104) 94 01/04/18 11:26 95 Nasal Cannula 2.00 01/04/18 08:26 95 Nasal Cannula 1.00 01/04/18 08:04 97.7 86 24 147/77 (100) 96 01/04/18 05:15 98.0 86 18 147/70 (95) 96 01/04/18 03:42 78 01/04/18 03:41 97 Nasal Cannula 2.00 01/04/18 00:00 97.3 91 18 144/66 (92) 94 01/04/18 00:00 Nasal Cannula 2.00 01/03/18 23:42 87 01/03/18 20:00 Nasal Cannula 2.00 01/03/18 20:00 98.1 96 18 117/72 (87) 95 01/03/18 19:46 86 01/03/18 17:36 98.2 91 18 120/70 (87) 93 01/03/18 17:23 01/03/18 17:17 92 23 169/86 (113) 93 I/O 01/03/18 01/03/18 01/03/18 01/04/18 01/04/18 01/04/18 07:00 15:00 23:00 07:00 15:00 23:00 Intake Total 868 ml Balance 868 ml Intake IV Total 868 ml # Voids 4 # Bowel Movements 1 Result Diagram: 01/04/1841901/04/18419 Objective Remarks GENERAL: This is a well-nourished, well-developed patient, in no apparent distress. SKIN: No rashes, warm and dry HEAD: Atraumatic. Normocephalic. EYES: Pupils equal round and reactive. Extraocular motions intact. No scleral icterus. ENT: Nose without bleeding, or drainage, Airway patent. NECK: Trachea midline. Supple CARDIOVASCULAR: Regular rate and rhythm without murmurs, gallops, or rubs. RESPIRATORY: Bilateral GASTROINTESTINAL: Abdomen soft, non-tender, nondistended. Positive bowel sounds MUSCULOSKELETAL: Extremities without clubbing, cyanosis, positive trace edema. Pedal pulses appreciated NEUROLOGICAL: Awake and alert. Moves all extremity. Normal speech.no focal neurological deficit A/P Assessment and Plan 87-year-old female with: 01/04: Continue current care with antibiotic awaiting pulmonary consultation, consider consult cardiology for CHF 1- sepsis/UTI: Heart rate at 100, no leukocytosis however she does have bandemia at 32, source would be a UTI. UA with large leukocyte esterase, many bacteria, and innumerable WBC with clumps. Urine culture and blood cultures pending. Patient had a temperature of 100.7 at home. None recorded here in the emergency room. Repeat CBC in the morning. Continue Rocephin IV every 24 hours. 2- COPD exacerbation: s/p 125mg IV solu-medrol in ED. Continue breather treatments ipratropium scheduled and prn. consult Dr. Le, pt's pulm per pt' s request. Pt known to him. Pt did try to get to see him in his office but couldn't get in soon enough. added flonase for possible post nasal gtt, continue home symbicort. add azithromycin, has had a cough x 4 weeks not responding to keflex. 3-hypothyroidism: Resume patient's home dose of Synthroid 4- CHF: Stable. Heart healthy diet with fluid restriction at 1500 mL's per day. Continue patient's the Lasix. Replete potassium and continues potassium supplementation. 5-ESRD stage III per daughter: Creatinine noted to be 1.52 with baseline of 0.82 on 04/03/16 per records (no recent Cr available). Patient does not follow with a solder technician. 6- Atrial fibrillation: Stable. continue pradaxa. Apparently per daughter she was supposed to be on digoxin however this is not listed on [facility] MAR. At this time, since pt does have hx of CHF, will place her on metoprolol 25mg po BID w holding parameters. Daughter to bring med rec as from my review of pt' s MAR at [facility], there are some concerns that this med rec may have not been reviewed. ( i.e pt being on both lasix and bumex, captopril/losartan...). 7- Hypertension: continue captopril, amlodipine. (per daughter pt does have stage III renal disease) 8. Diabetes insulin-dependent: resume pt's home dose of levemir. cover w medium ISS. continue Januvia but renally dose it. monitor BS. 9- anxiety: resume med 10- Hyperlipidemia: resume med 11-Chronic back pain: resume home meds. resume stool softeners as well. Malik Vitale MD Jan 04, 2018 14:03
[2018-01-04] MEDS: cefTRIAXone INJ 1,000 MG in SODIUM CHLORIDE 0.9% INJ 100 ML IV SCH (17:51)
[2018-01-04] MEDS: RESP: ALBUTEROL 2.5 MG/IPRATROPIUM 0.5 MG NEB (SCH) NEB (19:17)
[2018-01-04] MEDS: FLUTICASONE PROPIONATE 50 MCG/ACT 16 GM NASAL SPRAY EACH NARE SCH (21:00)
[2018-01-04] MEDS: DOCUSATE SODIUM 50 MG/SENNA 8.6 MG TAB PO SCH (21:50)
[2018-01-05] VITALS (10 sets, daily range): BP systolic 106–140; BP diastolic 59–80; PULSE 63–87; RESP 18–20; TEMP 97.5–98.5; O2SAT 92–99
--- NOTE | 2018-01-05 00:33 | EKG ---
Date Performed: 01/03/2018 Time Performed: 11:54:36 PTAGE: 87 years EKG: ATRIAL FIBRILLATION INFERIOR MYOCARDIAL INFARCTION ABNORMAL ECG PREVIOUS TRACING : 04/01/2016 17.21 DOCTOR: Elfego Espinoza Interpretating Date/Time 01/05/2018 00:17:23
[2018-01-05] MEDS: RESP: IPRATROPIUM 0.5 MG/2.5 ML NEB NEB SCH ×2 (04:00→21:33)
[2018-01-05] MEDS: CAPTOPRIL 50 MG TAB PO SCH ×2 (06:07→17:41)
[2018-01-05] MEDS: INSULIN ASPART SUPPLEMENTAL SCALE SQ SCH ×4 (08:00→22:00)
[2018-01-05] MEDS: RESP: ALBUTEROL 2.5 MG/IPRATROPIUM 0.5 MG NEB (SCH) NEB ×4 (08:14→19:58)
[2018-01-05] MEDS: SODIUM CHLORIDE 0.9% FLUSH 10 ML FLUSH IV FLUSH SCH ×2 (09:00→20:22)
[2018-01-05] MEDS: BUDESONIDE-FORMOTEROL 160/4.5 MCG INHALER INH SCH ×2 (09:18→20:21)
[2018-01-05] MEDS: SODIUM CHLOR 0.9% 1000 ML INJ 1,000 ML IV SCH ×2 (09:18→20:29)
--- NOTE | 2018-01-05 09:34 | MB ---
cc: Miko Le MD DATE: 01/04/2018 REASON FOR CONSULTATION: COPD. HISTORY OF PRESENT ILLNESS: This is an 87-year-old white female with a longstanding history of CHF, COPD, diabetes, hypertension, he has hyperlipidemia, has been brought to the emergency room with progressive weakness, shortness of breath and nausea. The patient also had some vomiting and was coughing and could not get out of bed, apparently fell and hit her face on the door and subsequently had to be brought to the ER for evaluation. She has been on oral Keflex and antihistamine. A chest x-ray that was done upon admission only showed some increased haziness at the lung bases, but otherwise unremarkable. The patient also was febrile upon admission and was suspected to have either a pneumonia or UTI. Since admission, she has been on oxygen at 3 liters nasal cannula and also has been started on antibiotic coverage and seems to be feeling better since earlier this morning. She is coughing up clear mucus. She denied any chest pains, but does have some urinary frequency. Leg swelling apparently has gone down. She has been given IV Solu-Medrol upon admission, but still has some wheezing and is receiving nebulized DuoNeb solution and on a nasal spray, as well as Symbicort. PAST MEDICAL HISTORY: Has included hypertension, diabetes mellitus, insulin-dependent, history of hyperlipidemia and hypothyroidism, atrial fibrillation and CHF, as well as chronic back pain. PAST SURGICAL HISTORY: Includes tonsillectomy, lumbar laminectomy, right breast lumpectomy for carcinoma, history of left femoral embolectomy, prior history of abscess of the groin, as well as cellulitis of the legs and history of cataract repair. ALLERGIES: ALBUTEROL. HABITS: The patient smoked remotely for 2-3 years, but then stopped. Alcohol use moderate in the past. FAMILY HISTORY: Significant for heart disease. REVIEW OF SYSTEMS: The patient is overweight. She has trouble ambulating. She has joint pain and leg swelling. She has depression and anxiety. She has epigastric distress and reflux. She has urinary frequency and flank pains. PHYSICAL EXAMINATION: GENERAL: This obese, elderly, white female was pale and alert and has mild clubbing and minimal peripheral edema. No lymphadenopathy. VITAL SIGNS: Blood pressure is 168/80, pulse 85, respirations 20, temperature 97.6. HEENT: Head is normocephalic. Pupils reactive and equal. Tongue is moist. Throat is clear. Nasal mucosa did not test. NECK: Supple, no bruits. No thyroid enlargement or lymphadenopathy. CHEST: Increased AP diameter with diffuse wheezes throughout both lung nava, prolonged expirations, with occasional crackle at the lung bases. HEART: Sounds are irregular, S1 and S2. No murmur. No S3. ABDOMEN: Soft, nontender. No organomegaly. Bowel sounds active. EXTREMITIES, NEUROLOGIC: Mild edema, with mild varicosities. No calf tenderness. Reflexes are 1+. There are no gross motor deficits. Cranial nerves grossly intact. SKIN: No lesions. IMPRESSION: 1. Urinary tract infection with sepsis. 2. Chronic obstructive pulmonary disease with acute exacerbation. 3. Chronic bronchitis and asthma. 4. Congestive heart failure, compensated. 5. Chronic atrial fibrillation. 6. Hypertension. 7. Diabetes mellitus. PLAN: The patient will be maintained on O2 at 2.5 liters nasal cannula, nebulized DuoNeb solution q.i.d. and Symbicort 160/4.5 two puffs twice daily, nebulized Atrovent solution t.i.d. p.r.n. will be continued. A followup chest x-ray, CBC and basic metabolic profile have been ordered. If her clinical condition has stabilized, she will be switched to oral antibiotic and could be discharged back to the half-way this week. Thank you for this consultation. MD MICHAELA Briones/PADDY , 12:21 AM , 12:59 AM
[2018-01-05] MEDS: predniSONE 10 MG TAB PO SCH (12:19)
[2018-01-05] MEDS: POTASSIUM CHLORIDE 20 MEQ CONTROLLED RELEASE TAB PO SCH (12:19)
[2018-01-05] MEDS: DULoxetine HCl DR 20 MG CAP PO SCH (12:19)
[2018-01-05] MEDS: METOPROLOL TARTRATE 25 MG TAB PO SCH ×2 (12:20→20:23)
[2018-01-05] MEDS: GABAPENTIN 300 MG CAP PO SCH ×3 (12:20→17:41)
[2018-01-05] MEDS: POLYETHYLENE GLYCOL 17 GM PKG PO SCH (12:20)
[2018-01-05] MEDS: FUROSEMIDE 40 MG TAB PO SCH (12:20)
[2018-01-05] MEDS: LEVOTHYROXINE SODIUM 100 MCG TAB PO SCH (12:21)
[2018-01-05] MEDS: ACETAMINOPHEN/HYDROcodone 325 MG/7.5 MG TAB PO SCH ×4 (12:21→20:23)
[2018-01-05] MEDS: amLODIPine BESYLATE 5 MG TAB PO SCH (12:21)
[2018-01-05] MEDS: DABIGATRAN ETEXILATE 150 MG CAP PO SCH ×2 (12:21→20:22)
[2018-01-05] MEDS: PANTOPRAZOLE SOD 20 MG DELAYED RELEASE TAB PO SCH (12:21)
[2018-01-05] MEDS: PRAVASTATIN SOD 40 MG TAB PO SCH (12:21)
[2018-01-05] MEDS: AZITHROMYCIN 250 MG TAB PO SCH (12:22)
[2018-01-05] MEDS: INSULIN DETEMIR 100 UNITS/ML VIAL SQ SCH (12:22)
[2018-01-05] MEDS: CHOLECALCIFEROL (VIT D3) 1000 UNIT TAB PO SCH (12:22)
[2018-01-05] MEDS: SERTRALINE HCL 100 MG TAB PO SCH (12:22)
[2018-01-05] MEDS: cefTRIAXone INJ 1,000 MG in SODIUM CHLORIDE 0.9% INJ 100 ML IV SCH (17:00)
--- NOTE | 2018-01-05 18:41 | HHI.PR ---
Subjective Remarks Patient in bed on 2 L nasal cannula, her daughter at the bedside we had lengthy discussion about her condition Overnight patient went into CO2 retention and respiratory acidosis she was placed on BiPAP today she looks stable but still on nasal cannula She is afebrile. The daughter tells me patient does not have a BiPAP at home but she is followed by Dr. Castano for her pulmonary fibrosis Objective Vitals Vital Signs Date Time Temp Pulse Resp B/P (MAP) Pulse Ox O2 Delivery O2 Flow Rate FiO2 01/05/18 14:48 20 01/05/18 08:14 99 40 01/05/18 07:15 99 Nasal Cannula 2.00 01/05/18 04:07 81 01/05/18 04:00 Bi-Pap 40 01/05/18 04:00 98.5 80 18 122/80 (94) 99 01/05/18 02:15 92 40 01/05/18 00:00 97.5 63 18 112/79 (90) 97 01/05/18 00:00 97 Nasal Cannula 1.00 01/05/18 00:00 72 01/04/18 22:00 Bi-Pap 01/04/18 21:28 98 BiPAP 40 01/04/18 21:27 98 40 01/04/18 20:44 Nasal Cannula 1.00 01/04/18 20:00 97.5 68 18 98/52 (67) 93 01/04/18 19:56 70 I/O 01/04/18 01/04/18 01/04/18 01/05/18 01/05/18 01/05/18 07:00 15:00 23:00 07:00 15:00 23:00 Intake Total 868 ml 1560 ml 1137 ml Balance 868 ml 1560 ml 1137 ml Intake Oral 460 ml 240 ml IV Total 868 ml 1100 ml 897 ml # Voids 4 4 2 # Bowel Movements 1 1 1 Result Diagram: 01/04/1841901/04/18 042 Objective Remarks GENERAL: This is a well-nourished, well-developed patient, in no apparent distress. SKIN: No rashes, warm and dry HEAD: Atraumatic. Normocephalic. EYES: Pupils equal round and reactive. Extraocular motions intact. No scleral icterus. ENT: Nose without bleeding, or drainage, Airway patent. NECK: Trachea midline. Supple CARDIOVASCULAR: Regular rate and rhythm without murmurs, gallops, or rubs. RESPIRATORY: Diminished breath sounds bilaterally GASTROINTESTINAL: Abdomen soft, non-tender, nondistended. Positive bowel sounds MUSCULOSKELETAL: Extremities without clubbing, cyanosis, positive trace edema. Pedal pulses appreciated NEUROLOGICAL: Awake and alert. Moves all extremity. Normal speech.no focal neurological deficit A/P Assessment and Plan 87-year-old female with: 01/04: Continue current care with antibiotic awaiting pulmonary consultation, consider consult cardiology for CHF 01/04: Respiratory acidosis with CO2 retention overnight I reviewed ABGs pH was in the 7.28, CO2 59, continue BiPAP, Dr. Castano following, currently stable on 2 L nasal cannula, continue current management with DuoNeb steroid, diuretic I will hold Januvia, repeat BMP and BNP in a.m. A/P: 1- sepsis/UTI: Heart rate at 100, no leukocytosis however she does have bandemia at 32, source would be a UTI. UA with large leukocyte esterase, many bacteria, and innumerable WBC with clumps. Urine culture and blood cultures pending. Patient had a temperature of 100.7 at home. None recorded here in the emergency room. Repeat CBC in the morning. Continue Rocephin IV every 24 hours. 2- COPD exacerbation: s/p 125mg IV solu-medrol in ED. Continue breather treatments ipratropium scheduled and prn. consult Dr. Le, pt's pulm per pt' s request. Pt known to him. Pt did try to get to see him in his office but couldn't get in soon enough. added flonase for possible post nasal gtt, continue home symbicort. add azithromycin, has had a cough x 4 weeks not responding to keflex. 3-hypothyroidism: Resume patient's home dose of Synthroid 4- CHF: Stable. Heart healthy diet with fluid restriction at 1500 mL's per day. Continue patient's the Lasix. Replete potassium and continues potassium supplementation. 5-ESRD stage III per daughter: Creatinine noted to be 1.52 with baseline of 0.82 on 04/03/16 per records (no recent Cr available). 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 6- Atrial fibrillation: Stable. continue pradaxa. Apparently per daughter she was supposed to be on digoxin however this is not listed on [facility] MAR. At this time, since pt does have hx of CHF, will place her on metoprolol 25mg po BID w holding parameters. Daughter to bring med rec as from my review of pt' s MAR at [facility], there are some concerns that this med rec may have not been reviewed. ( i.e pt being on both lasix and bumex, captopril/losartan...). 7- Hypertension: continue captopril, amlodipine. (per daughter pt does have stage III renal disease) 8. Diabetes insulin-dependent: resume pt's home dose of levemir. cover w medium ISS. continue Januvia but renally dose it. monitor BS. 9- anxiety: resume med 10- Hyperlipidemia: resume med 11-Chronic back pain: resume home meds. resume stool softeners as well. Malik Vitale MD Jan 05, 2018 18:41
--- NOTE | 2018-01-05 19:30 | HHI.PR ---
Subjective Remarks She is better. On o2 2 L Has CO2 retention. No chest pain. Used BIPAP at HS Objective Vital Signs Date Time Temp Pulse Resp B/P (MAP) Pulse Ox O2 Delivery O2 Flow Rate FiO2 01/05/18 19:15 20 01/05/18 16:00 77 01/05/18 12:00 76 01/05/18 08:14 99 40 01/05/18 08:00 98.0 76 18 119/70 (86) 97 01/05/18 08:00 70 01/05/18 07:15 99 Nasal Cannula 2.00 01/05/18 04:07 81 01/05/18 04:00 Bi-Pap 40 01/05/18 04:00 98.5 80 18 122/80 (94) 99 01/05/18 02:15 92 40 01/05/18 00:00 97.5 63 18 112/79 (90) 97 01/05/18 00:00 97 Nasal Cannula 1.00 01/05/18 00:00 72 01/04/18 22:00 Bi-Pap 01/04/18 21:28 98 BiPAP 40 01/04/18 21:27 98 40 01/04/18 20:44 Nasal Cannula 1.00 01/04/18 20:00 97.5 68 18 98/52 (67) 93 01/04/18 19:56 70 I/O 01/04/18 01/04/18 01/04/18 01/05/18 01/05/18 01/05/18 06:59 14:59 22:59 06:59 14:59 22:59 Intake Total 868 ml 1560 ml 1137 ml Balance 868 ml 1560 ml 1137 ml Intake Oral 460 ml 240 ml IV Total 868 ml 1100 ml 897 ml # Voids 4 4 2 # Bowel Movements 1 1 1 Result Diagram: 01/04/18 0420 01/04/18 042 Objective Remarks GENERAL: This obese, elderly, white female was pale and alert and has mild clubbing and minimal peripheral edema. No lymphadenopathy. HEENT: Head is normocephalic. Pupils reactive and equal. Tongue is moist. Throat is clear. Nasal mucosa did not test. NECK: Supple, no bruits. No thyroid enlargement or lymphadenopathy. CHEST: Increased AP diameter with diffuse wheezes over both lung nava, prolonged expirations, with occasional crackle at the lung bases. HEART: Sounds are irregular, S1 and S2. No murmur. No S3. ABDOMEN: Soft, nontender. No organomegaly. Bowel sounds active. EXTREMITIES, NEUROLOGIC: Mild edema, with mild varicosities. No calf tenderness. Reflexes are 1+. There are no gross motor deficits. Cranial nerves grossly intact. SKIN: No lesions. Assessment and Plan Assessment and Plan IMPRESSION: 1. Urinary tract infection with sepsis. 2. Chronic obstructive pulmonary disease with acute exacerbation. 3. Chronic bronchitis and asthma. 4. Congestive heart failure, compensated. 5. Chronic atrial fibrillation. 6. Hypertension. 7. Diabetes mellitus. 8. Possible MITCH. Plan : 1. Will arrange home O2 2 L 2. Add Solumedrol 40 mg BID X 3 days 3. Symbicort 160/4.5 mcg , 2 puffs bId 4. Continue antibiotics , Rocephin ,Zithro 5. PFT at Bedside 6. Up with help. 7. Get sleep study as OP . 8. BIPAP 12/5 cm at HS with FIO2 28 % Miko Le MD Jan 05, 2018 19:30
[2018-01-05] MEDS: FLUTICASONE PROPIONATE 50 MCG/ACT 16 GM NASAL SPRAY EACH NARE SCH (20:21)
[2018-01-05] MEDS: DOCUSATE SODIUM 50 MG/SENNA 8.6 MG TAB PO SCH (20:23)
[2018-01-06] VITALS (12 sets, daily range): BP systolic 115–149; BP diastolic 60–85; PULSE 64–78; RESP 19–20; TEMP 97.6–98.9; O2SAT 91–98
[2018-01-06] MEDS: RESP: IPRATROPIUM 0.5 MG/2.5 ML NEB NEB SCH ×4 (03:10→22:00)
[2018-01-06] MEDS: CAPTOPRIL 50 MG TAB PO SCH ×2 (06:07→17:04)
[2018-01-06] MEDS: SODIUM CHLOR 0.9% 1000 ML INJ 1,000 ML IV SCH (06:08)
[2018-01-06] MEDS: INSULIN ASPART SUPPLEMENTAL SCALE SQ SCH ×4 (08:00→21:00)
[2018-01-06] MEDS: RESP: ALBUTEROL 2.5 MG/IPRATROPIUM 0.5 MG NEB (SCH) NEB ×4 (08:13→20:33)
[2018-01-06] MEDS: SODIUM CHLORIDE 0.9% FLUSH 10 ML FLUSH IV FLUSH SCH ×2 (09:00→21:00)
[2018-01-06] MEDS: DABIGATRAN ETEXILATE 150 MG CAP PO SCH ×2 (09:00→21:00)
[2018-01-06] MEDS: INSULIN DETEMIR 100 UNITS/ML VIAL SQ SCH (09:00)
[2018-01-06] MEDS: POLYETHYLENE GLYCOL 17 GM PKG PO SCH (09:52)
[2018-01-06] MEDS: GABAPENTIN 300 MG CAP PO SCH ×3 (09:52→21:47)
[2018-01-06] MEDS: DULoxetine HCl DR 20 MG CAP PO SCH (09:52)
[2018-01-06] MEDS: CHOLECALCIFEROL (VIT D3) 1000 UNIT TAB PO SCH (09:53)
[2018-01-06] MEDS: PANTOPRAZOLE SOD 20 MG DELAYED RELEASE TAB PO SCH (09:53)
[2018-01-06] MEDS: AZITHROMYCIN 250 MG TAB PO SCH (09:53)
[2018-01-06] MEDS: SERTRALINE HCL 100 MG TAB PO SCH (09:53)
[2018-01-06] MEDS: predniSONE 10 MG TAB PO SCH (09:53)
[2018-01-06] MEDS: METOPROLOL TARTRATE 25 MG TAB PO SCH ×2 (09:53→21:47)
[2018-01-06] MEDS: amLODIPine BESYLATE 5 MG TAB PO SCH (09:53)
[2018-01-06] MEDS: PRAVASTATIN SOD 40 MG TAB PO SCH (09:53)
[2018-01-06] MEDS: LEVOTHYROXINE SODIUM 100 MCG TAB PO SCH (09:54)
[2018-01-06] MEDS: POTASSIUM CHLORIDE 20 MEQ CONTROLLED RELEASE TAB PO SCH (09:54)
[2018-01-06] MEDS: FUROSEMIDE 40 MG TAB PO SCH (09:54)
[2018-01-06] MEDS: ACETAMINOPHEN/HYDROcodone 325 MG/7.5 MG TAB PO SCH ×4 (09:55→21:47)
[2018-01-06] MEDS: BUDESONIDE-FORMOTEROL 160/4.5 MCG INHALER INH SCH ×2 (09:57→21:00)
[2018-01-06 10:13] LABS: BICARBONATE 24.5 MEQ/L (21.0-32.0); CALCIUM 8.3 MG/DL (8.5-10.1); CREATININE 1.17 MG/DL (0.50-1.00); MAGNESIUM 2.1 MG/DL (1.5-2.5); PHOSPHORUS 3.7 MG/DL (2.5-4.9)
[2018-01-06 13:54] LABS: AUTOMATED NEUTROPHIL # 5.2 TH/MM3 (1.8-7.7); BASOPHIL % 0.1 % (0.0-2.0); EOSINOPHIL % 0.6 % (0.0-4.0); HEMATOCRIT 33.6 % (35.0-46.0); HEMOGLOBIN 11.2 GM/DL (11.6-15.3); LYMPH % 6.6 % (9.0-44.0); LYMPHOCYTE # 0.4 TH/MM3 (1.0-4.8); MEAN CELL VOLUME 93.5 FL (80.0-100.0); MEAN CORPUSCULAR HEMOGLOBIN 31.1 PG (27.0-34.0); MEAN CORPUSCULAR HGB CONC 33.3 % (32.0-36.0); MEAN PLATELET VOLUME 8.7 FL (7.0-11.0); MONO % 12.8 % (0.0-8.0); MONOCYTE # 0.8 TH/MM3 (0-0.9); NEUT % 79.9 % (16.0-70.0); PLATELET COUNT 132 TH/MM3 (150-450); RED BLOOD COUNT 3.59 MIL/MM3 (4.00-5.30); RED CELL DISTRIBUTION WIDTH 14.7 % (11.6-17.2); WHITE BLOOD COUNT 6.5 TH/MM3 (4.0-11.0)
--- NOTE | 2018-01-06 14:42 | HHI.PR ---
Subjective Remarks Pleasant 87 years old female resting in bed Daughter at the bedside Afebrile, breathing stable Objective Vitals Vital Signs Date Time Temp Pulse Resp B/P (MAP) Pulse Ox O2 Delivery O2 Flow Rate FiO2 01/06/18 12:00 98.2 66 20 115/73 (87) 92 01/06/18 08:16 98 Nasal Cannula 01/06/18 08:00 97.9 78 19 129/64 (85) 98 01/06/18 08:00 Nasal Cannula 2.00 01/06/18 05:04 96 01/06/18 04:00 71 01/06/18 04:00 Nasal Cannula 2.00 01/06/18 04:00 97.6 64 20 121/60 (80) 98 01/06/18 03:56 98 Nasal Cannula 2.00 01/06/18 00:00 Nasal Cannula 2.00 01/06/18 00:00 72 01/05/18 23:32 98.4 87 20 140/74 (96) 96 01/05/18 20:00 93 Nasal Cannula 2.00 01/05/18 20:00 68 01/05/18 20:00 2.00 01/05/18 20:00 97.5 75 20 106/79 (88) 96 01/05/18 19:15 20 01/05/18 16:00 77 01/05/18 16:00 98.3 77 18 110/65 (80) 96 I/O 01/05/18 01/05/18 01/05/18 01/06/18 01/06/18 01/06/18 07:00 15:00 23:00 07:00 15:00 23:00 Intake Total 1137 ml 600 ml 2070 ml Balance 1137 ml 600 ml 2070 ml Intake Oral 240 ml 600 ml 1070 ml IV Total 897 ml 1000 ml # Voids 2 2 4 # Bowel Movements 1 2 1 Result Diagram: 01/06/18 1324 01/06/18 0855 Objective Remarks GENERAL: This is a well-nourished, well-developed patient, in no apparent distress. SKIN: No rashes, warm and dry HEAD: Atraumatic. Normocephalic. EYES: Pupils equal round and reactive. Extraocular motions intact. No scleral icterus. ENT: Nose without bleeding, or drainage, Airway patent. NECK: Trachea midline. Supple CARDIOVASCULAR: Regular rate and rhythm without murmurs, gallops, or rubs. RESPIRATORY: Diminished breath sounds bilaterally GASTROINTESTINAL: Abdomen soft, non-tender, nondistended. Positive bowel sounds MUSCULOSKELETAL: Extremities without clubbing, cyanosis, positive trace edema. Pedal pulses appreciated NEUROLOGICAL: Awake and alert. Moves all extremity. Normal speech.no focal neurological deficit A/P Assessment and Plan 87-year-old female with: A/P: 1- sepsis/UTI: Heart rate at 100, no leukocytosis however she does have bandemia at 32, source would be a UTI. UA with large leukocyte esterase, many bacteria, and innumerable WBC with clumps. Urine culture and blood cultures pending. Patient had a temperature of 100.7 at home. None recorded here in the emergency room. Repeat CBC in the morning. Continue Rocephin IV every 24 hours. 2- COPD exacerbation with hypercapnic respiratory failure: Chronic bronchial asthma s/p 125mg IV solu-medrol in ED. Continue breather treatments ipratropium scheduled and prn. consult Dr. Le, pt's pulm per pt's request. Plan for PFT, continue Solu-Medrol, continue home symbicort. add azithromycin, 3-hypothyroidism: Resume patient's home dose of Synthroid 4- CHF: Stable. Heart healthy diet with fluid restriction at 1500 mL's per day. Continue patient's the Lasix. Replete potassium and continues potassium supplementation. 5-ESRD stage III per daughter: Creatinine noted to be 1.52 with baseline of 0.82 on 04/03/16 per records (no recent Cr available). Patient does not follow with a production corrugator. 6- Atrial fibrillation: Stable. continue pradaxa. Apparently per daughter she was supposed to be on digoxin however this is not listed on [facility] MAR. At this time, since pt does have hx of CHF, will place her on metoprolol 25mg po BID w holding parameters. Daughter to bring med rec as from my review of pt' s MAR at [facility], there are some concerns that this med rec may have not been reviewed. ( i.e pt being on both lasix and bumex, captopril/losartan...). We will consult cardiology for CHF management 7- Hypertension: continue captopril, amlodipine. (per daughter pt does have stage III renal disease) 8. Diabetes insulin-dependent: resume pt's home dose of levemir. cover w medium ISS. continue Januvia but renally dose it. monitor BS. 9- anxiety: resume med 10- Hyperlipidemia: resume med 11-Chronic back pain: resume home meds. resume stool softeners as well. Discharge Planning Pending clinical improvement for CHF and respiratory failure Malik Vitale MD Jan 06, 2018 14:42
[2018-01-06] MEDS: cefTRIAXone INJ 1,000 MG in SODIUM CHLORIDE 0.9% INJ 100 ML IV SCH (17:04)
[2018-01-06] MEDS ORDERED: FUROSEMIDE 40 MG/4 ML VIAL IV PUSH ONE (18:00)
--- NOTE | 2018-01-06 19:20 | HHI.PR ---
Subjective Remarks Much better. On o2 2 L . Used BIPAP at HS. taking her diet well. Objective Vital Signs Date Time Temp Pulse Resp B/P (MAP) Pulse Ox O2 Delivery O2 Flow Rate FiO2 01/06/18 12:00 98.2 66 20 115/73 (87) 92 01/06/18 11:56 68 01/06/18 11:00 20 01/06/18 08:16 98 Nasal Cannula 01/06/18 08:00 97.9 78 19 129/64 (85) 98 01/06/18 08:00 Nasal Cannula 2.00 01/06/18 05:04 96 01/06/18 04:00 71 01/06/18 04:00 Nasal Cannula 2.00 01/06/18 04:00 97.6 64 20 121/60 (80) 98 01/06/18 03:56 98 Nasal Cannula 2.00 01/06/18 00:00 Nasal Cannula 2.00 01/06/18 00:00 72 01/05/18 23:32 98.4 87 20 140/74 (96) 96 01/05/18 20:00 93 Nasal Cannula 2.00 01/05/18 20:00 68 01/05/18 20:00 2.00 01/05/18 20:00 97.5 75 20 106/79 (88) 96 I/O 01/05/18 01/05/18 01/05/18 01/06/18 01/06/18 01/06/18 07:00 15:00 23:00 07:00 15:00 23:00 Intake Total 1137 ml 600 ml 2070 ml Balance 1137 ml 600 ml 2070 ml Intake Oral 240 ml 600 ml 1070 ml IV Total 897 ml 1000 ml # Voids 2 2 4 # Bowel Movements 1 2 1 Result Diagram: 01/06/18 1324 01/06/18 0855 Objective Remarks GENERAL: This obese, elderly, white female was pale and alert and has mild clubbing and minimal peripheral edema. No lymphadenopathy. HEENT: Head is normocephalic. Pupils reactive and equal. Tongue is moist. Throat is clear. Nasal mucosa did not test. NECK: Supple, no bruits. No thyroid enlargement or lymphadenopathy. CHEST: Increased AP diameter with wheezes over both lung nava, prolonged expirations, with occasional crackles at the lung bases. HEART: Sounds are irregular, S1 and S2. No murmur. No S3. ABDOMEN: Soft, nontender. No organomegaly. Bowel sounds active. EXTREMITIES, NEUROLOGIC: Mild edema, with varicosities. No calf tenderness. Reflexes are 1+. There are no gross motor deficits. Cranial nerves grossly intact. SKIN: No lesions. Assessment and Plan Assessment and Plan IMPRESSION: 1. Urinary tract infection with sepsis. 2. Chronic obstructive pulmonary disease with acute exacerbation. 3. Chronic bronchitis and asthma. 4. Congestive heart failure, compensated. 5. Chronic atrial fibrillation. 6. Hypertension. 7. Diabetes mellitus. 8. Possible MITCH. Plan : 1. Will arrange home O2 2 L 2. Solumedrol 40 mg BID X 2 days 3. Symbicort 160/4.5 mcg , 2 puffs bId 4. Continue antibiotics , Rocephin ,Zithro 5. Will get Sleep study as OP 6. Up with help. 7. Labs in am 8. BIPAP 12/5 cm at HS with FIO2 28 % Miko Le MD Jan 06, 2018 19:20
[2018-01-06] MEDS: methylPREDNISolone SOD SUCC 40 MG/1 ML VIAL IV PUSH SCH (21:00)
[2018-01-06] MEDS: FLUTICASONE PROPIONATE 50 MCG/ACT 16 GM NASAL SPRAY EACH NARE SCH (21:00)
[2018-01-06] MEDS: DOCUSATE SODIUM 50 MG/SENNA 8.6 MG TAB PO SCH (21:47)
[2018-01-07] VITALS (14 sets, daily range): BP systolic 103–170; BP diastolic 58–96; PULSE 62–93; RESP 18–22; TEMP 97.6–98.2; O2SAT 92–97
[2018-01-07] MEDS: RESP: IPRATROPIUM 0.5 MG/2.5 ML NEB NEB SCH ×2 (04:00→22:00)
[2018-01-07] MEDS: CAPTOPRIL 50 MG TAB PO SCH ×2 (06:49→17:18)
[2018-01-07] MEDS: INSULIN ASPART SUPPLEMENTAL SCALE SQ SCH ×4 (08:00→21:00)
[2018-01-07] MEDS: RESP: ALBUTEROL 2.5 MG/IPRATROPIUM 0.5 MG NEB (SCH) NEB ×4 (08:00→20:22)
[2018-01-07 09:03] LABS: BICARBONATE 31.3 MEQ/L (21.0-32.0); CREATININE 0.93 MG/DL (0.50-1.00)
[2018-01-07] MEDS: GABAPENTIN 300 MG CAP PO SCH ×2 (09:48→21:16)
[2018-01-07] MEDS: amLODIPine BESYLATE 5 MG TAB PO SCH (09:48)
[2018-01-07] MEDS: LEVOTHYROXINE SODIUM 100 MCG TAB PO SCH (09:48)
[2018-01-07] MEDS: METOPROLOL TARTRATE 25 MG TAB PO SCH ×2 (09:49→21:16)
[2018-01-07] MEDS: AZITHROMYCIN 250 MG TAB PO SCH (09:49)
[2018-01-07] MEDS: CHOLECALCIFEROL (VIT D3) 1000 UNIT TAB PO SCH (09:49)
[2018-01-07] MEDS: methylPREDNISolone SOD SUCC 40 MG/1 ML VIAL IV PUSH SCH ×2 (09:49→21:16)
[2018-01-07] MEDS: FUROSEMIDE 40 MG TAB PO SCH (09:49)
[2018-01-07] MEDS: POTASSIUM CHLORIDE 20 MEQ CONTROLLED RELEASE TAB PO SCH (09:49)
[2018-01-07] MEDS: DABIGATRAN ETEXILATE 150 MG CAP PO SCH ×2 (09:50→21:00)
[2018-01-07] MEDS: ACETAMINOPHEN/HYDROcodone 325 MG/7.5 MG TAB PO SCH ×4 (09:51→21:16)
[2018-01-07] MEDS: PANTOPRAZOLE SOD 20 MG DELAYED RELEASE TAB PO SCH (09:51)
[2018-01-07] MEDS: DULoxetine HCl DR 20 MG CAP PO SCH (09:51)
[2018-01-07] MEDS: PRAVASTATIN SOD 40 MG TAB PO SCH (09:51)
[2018-01-07] MEDS: SERTRALINE HCL 100 MG TAB PO SCH (09:51)
[2018-01-07] MEDS: INSULIN DETEMIR 100 UNITS/ML VIAL SQ SCH (09:53)
[2018-01-07] MEDS: BUDESONIDE-FORMOTEROL 160/4.5 MCG INHALER INH SCH ×2 (09:56→21:00)
[2018-01-07] MEDS: SODIUM CHLORIDE 0.9% FLUSH 10 ML FLUSH IV FLUSH SCH ×2 (09:56→21:17)
[2018-01-07] MEDS: POLYETHYLENE GLYCOL 17 GM PKG PO SCH (09:56)
--- NOTE | 2018-01-07 12:56 | HHI.PR ---
Subjective Remarks awake and alert feeling better telemetry- a fib- rate controlled Objective Vitals Vital Signs Date Time Temp Pulse Resp B/P (MAP) Pulse Ox O2 Delivery O2 Flow Rate FiO2 01/07/18 10:10 95 Nasal Cannula 2.00 01/07/18 08:04 97.9 84 22 133/68 (89) 97 01/07/18 04:05 64 01/07/18 03:57 98.2 70 20 161/96 (117) 97 01/07/18 00:24 71 01/07/18 00:13 Room Air 01/07/18 00:09 97.9 79 20 145/68 (93) 94 01/06/18 20:34 98 01/06/18 20:15 71 01/06/18 20:08 98.5 73 20 117/85 (96) 93 01/06/18 20:08 Room Air 01/06/18 19:33 20 01/06/18 16:00 75 01/06/18 16:00 98.9 78 20 149/67 (94) 91 I/O 01/06/18 01/06/18 01/06/18 01/07/18 01/07/18 01/07/18 07:00 15:00 23:00 07:00 15:00 23:00 Intake Total 2070 ml 360 ml 220 ml Output Total 800 ml Balance 2070 ml 360 ml -580 ml Intake Oral 1070 ml 360 ml 220 ml IV Total 1000 ml Output Urine Total 800 ml # Voids 4 2 # Bowel Movements 1 1 1 Result Diagram: 01/06/18 1324 01/07/18 0742 Imaging Last Impressions Chest X-Ray 01/03/18 1115 Signed Impressions: Service Date/Time: Wednesday, January 03, 2018 11:25 - CONCLUSION: Cardiomegaly. No focal infiltrate or pulmonary vascular congestion. Navneet Guevara MD CT Angiography 01/03/18 0000 Signed Impressions: Service Date/Time: Wednesday, January 03, 2018 13:21 - CONCLUSION: 1. No evidence of pulmonary embolism. 2. Minimal scattered fibrotic scarring and peripheral bleb formation bilaterally. 3. Cardiomegaly and coronary artery calcifications. 4. Mild splenomegaly. 5. Degenerative changes, scoliosis and multiple chronic compression deformities involving the thoracic spine. 6. Small hiatal hernia. Navneet Guevara MD Objective Remarks awake and alert anicteric irregular rhythm no rales o wheezes, decrease breath sounds but equal abdomen-soft, nontender extremities- no edema A/P Assessment and Plan 87 years old female -E coli sepsis secondary to UTI: t down on Rocephin IV every 24 hours. ID consult for recommendation get renal ultrasound Repeat blood cultures today to ensure clearance MINERVA- improved underlying CKD stage III per daughter: Creatinine noted to be 1.52 with baseline of 0.82 on 04/03/16 per records (no recent Cr available). ff BMP get imaging- kidney COPD exacerbation with hypercapnic respiratory failure:- respiratory reece improving Chronic HAD s/p 125mg IV solu-medrol in ED. Continue breather treatments ipratropium scheduled and prn. Dr. Le-ff- - patient pulmologist- on Solu-Medrol continue home symbicort. add azithromycin, hypothyroidism: Resume patient's home dose of Synthroid CHF: Stable. Heart healthy diet with fluid restriction at 1500 mL's per day. Continue patient's the Lasix. Replete potassium and continues potassium supplementation. Atrial fibrillation: Stable. on Pradaxa. Apparently per daughter she was supposed to be on digoxin however this is not listed on [facility] MAR. At this time, since pt does have hx of CHF, on metoprolol 25mg po BID w holding parameters. Daughter to bring med rec as from my review of pt's MAR at [facility], there are some concerns that this med rec may have not been reviewed. ( i.e pt being on both lasix and bumex, captopril/losartan...). We will consult cardiology for CHF management get Echo Hypertension: continue captopril, amlodipine. (per daughter pt does have stage III renal disease) Diabetes insulin-dependent: resume pt's home dose of levemir. cover w medium ISS. continue Januvia but renally dose it. monitor BS. anxiety: resume med Hyperlipidemia: resume med Chronic back pain: resume home meds. resume stool softeners as well. DVT prophylaxis- patient on Pradaxa PT/OT consult DC planning- SNF Mauri Madrigal MD Jan 07, 2018 12:56
[2018-01-07] MEDS: cefTRIAXone INJ 1,000 MG in SODIUM CHLORIDE 0.9% INJ 100 ML IV SCH (17:19)
--- NOTE | 2018-01-07 18:35 | HHI.PR ---
Subjective Remarks Feels well. On o2 2 L . Off BiPAP Objective Vital Signs Date Time Temp Pulse Resp B/P (MAP) Pulse Ox O2 Delivery O2 Flow Rate FiO2 01/07/18 12:04 97.8 84 22 116/71 (86) 97 01/07/18 10:10 95 Nasal Cannula 2.00 01/07/18 08:04 97.9 84 22 133/68 (89) 97 01/07/18 04:05 64 01/07/18 03:57 98.2 70 20 161/96 (117) 97 01/07/18 00:24 71 01/07/18 00:13 Room Air 01/07/18 00:09 97.9 79 20 145/68 (93) 94 01/06/18 20:34 98 01/06/18 20:15 71 01/06/18 20:08 98.5 73 20 117/85 (96) 93 01/06/18 20:08 Room Air 01/06/18 19:33 20 I/O 01/06/18 01/06/18 01/06/18 01/07/18 01/07/18 01/07/18 07:00 15:00 23:00 07:00 15:00 23:00 Intake Total 2070 ml 360 ml 220 ml Output Total 800 ml Balance 2070 ml 360 ml -580 ml Intake Oral 1070 ml 360 ml 220 ml IV Total 1000 ml Output Urine Total 800 ml # Voids 4 2 # Bowel Movements 1 1 1 Result Diagram: 01/06/18 1324 01/07/18 0742 Objective Remarks GENERAL: This obese, elderly, white female was pale and alert and has mild clubbing and minimal peripheral edema. No lymphadenopathy. HEENT: Head is normocephalic. Pupils reactive and equal. Tongue is moist. Throat is clear. Nasal mucosa did not test. NECK: Supple, no bruits. No thyroid enlargement or lymphadenopathy. CHEST: Increased AP diameter with prolonged expirations, with occasional crackles at the lung bases. HEART: Sounds are irregular, S1 and S2. No murmur. No S3. ABDOMEN: Soft, nontender. No organomegaly. Bowel sounds active. EXTREMITIES, NEUROLOGIC: Mild edema, with varicosities. No calf tenderness. Reflexes are 1+. There are no gross motor deficits. Cranial nerves grossly intact. SKIN: No lesions. Assessment and Plan Assessment and Plan IMPRESSION: 1. Urinary tract infection with sepsis. 2. Chronic obstructive pulmonary disease with acute exacerbation. 3. Chronic bronchitis and asthma. 4. Congestive heart failure, compensated. 5. Chronic atrial fibrillation. 6. Hypertension. 7. Diabetes mellitus. 8. Possible MITCH. Plan : 1. Will arrange home O2 2 L 2. Cont Solumedrol 3. Symbicort 160/4.5 mcg , 2 puffs bId 4. Continue antibiotics , and switch to PO. 5. Will get Sleep study as OP 6. Rehab placement soon 7. CBC,BMP Miko Le MD Jan 07, 2018 18:35
--- NOTE | 2018-01-07 19:41 | MB ---
cc: John Salcedo MD DATE: 01/07/2018 HISTORY OF PRESENT ILLNESS: Silvia is a very pleasant 87-year-old lady who had a recent fall. She denies syncope or loss of consciousness. She is currently sitting in a chair in no acute distress. Denies chest pain, fever, chills, cough, GI/ bleeding, PND, orthopnea or syncope. The patient was admitted on 01/03/2018, due to cough, dyspnea, fevers and generalized weakness. PAST MEDICAL HISTORY: Includes diabetes mellitus, CHF, atrial fibrillation, hypertension, diabetes, COPD, arthritis, breast cancer, history of myocardial infarction, bronchitis, lumbar laminectomy in 2009, cataract removal bilaterally, tonsillectomy, thoracic surgery 07/2010. SOCIAL HISTORY: She drinks an occasional glass of wine. Denies tobacco use. ALLERGIES: ALBUTEROL. MEDICATIONS PRIOR TO ADMISSION: Blain, vitamin D3, Celebrex, prednisone 10 mg daily, losartan 50 mg daily, furosemide 40 mg daily, Pradaxa 150 mg b.i.d., captopril 50 mg b.i.d., Prilosec 20 mg daily, polyethylene calcium 500, docusate, potassium chloride, Atrovent, Januvia, Bumex 1 mg daily, Cymbalta, Symbicort, vitamin B12, Norvasc 5 daily, Xanax, simvastatin 20 daily, levothyroxine, gabapentin, Benadryl, Zoloft and Keflex. MEDICATIONS AT HOME: Gabapentin 300 b.i.d., methylprednisolone 40 q. 12 hours, fluticasone 2 at bedtime, albuterol, insulin 50 daily, amlodipine 5 mg daily, cholecalciferol 1000 units daily, Cymbalta 20 daily, Lasix 40 daily, levothyroxine 100 daily, potassium 20 daily, sertraline 100 daily, pantoprazole 20 daily, pravastatin 40 daily, polyethylene glycol 16 gm daily, captopril 50 b.i.d., Symbicort, Pradaxa 150 b.i.d., Toprol 25 q. 12 hours, ceftriaxone IV. PHYSICAL EXAMINATION: VITAL SIGNS: Blood pressure 130/79, pulse 76, respiratory rate 22, temperature 98.0. GENERAL: She is alert and oriented x 3, in no acute distress. NECK: Supple. No JVD. No bruit. CARDIOVASCULAR: S1, S2. No murmurs, rubs or gallops. LUNGS: Clear to auscultation bilaterally. ABDOMEN: Soft, nontender, nondistended with positive bowel sounds. EXTREMITIES: No lower extremity edema. DIAGNOSTIC DATA: CT of the chest: No evidence of pulmonary embolism. Minimal scattered fibrotic scarring and peripheral bleb formation bilaterally, cardiomegaly and coronary artery calcifications, mild splenomegaly, degenerative changes, small hiatal hernia. Chest x-ray: Cardiomegaly, no focal infiltrate or pulmonary vascular congestion. EKG: AFib at a rate of 95 beats per minute, nonspecific ST-T wave changes. LABORATORY DATA: White count 6.5, hemoglobin 11.2, hematocrit 33.6, platelet count ranging between 88 and 132. Blood gas on 01/05/2018, pH 7.28, pCO2 of 59, pO2 of 124 on BiPAP. INR 1.1. Sodium 141, potassium 3.8, chloride 102, bicarbonate 31.3, BUN 40, creatinine 0.93. BNP is 269. DIAGNOSES: She has the following diagnoses: 1. Atrial fibrillation. 2. Congestive heart failure. 3. Coronary artery disease. 4. Diabetes mellitus. 5. Chronic obstructive pulmonary disease. 6. Respiratory acidosis. At this point in time, the patient is asymptomatic. She is on appropriate medications including Pradaxa for her Afib, captopril and metoprolol for her congestive heart failure. She has a mild BNP elevation and is essentially euvolemic. Recommend continue Lasix 40 daily. I do think the patient can be discharged from a cardiac standpoint. I have told this to the charge nurse, Alondra, and recommended the patient follow up with me in my office as soon as possible. MD GABY Carrasco/SB , 06:58 PM , 07:39 PM
--- NOTE | 2018-01-07 20:03 | RADRPT ---
EXAM DATE/TIME: 01/07/2018 18:58 [facility] COMPARISON: No previous studies available for comparison. INDICATIONS : Urosepsis. MEDICAL HISTORY : Chronic obstructive pulmonary disease. Thyroid disease. Glasses. Atrial fibrillation. Renal disea se. Arthritis. Osteoporosis. Diabetes. Anxiety. SURGICAL HISTORY : section. Bilateral cataract surgery. Laminectomy. ENCOUNTER: Initial ACUITY: 1 day PAIN SCORE: 0/10 LOCATION: Bilateral flank MEASUREMENTS: RIGHT KIDNEY: 11.0 x 5.0 x 5.3 cm LEFT KIDNEY: 10.4 x 4.7 x 4.6 cm FINDINGS: RIGHT KIDNEY: Renal cortex is normal in thickness and echotexture. No hydronephrosis, stone, or mass. LEFT KIDNEY: Renal cortex is normal in thickness and echotexture. No hydronephrosis, stone, or mass. BLADDER: Within normal limits given the degree of distension. CONCLUSION: No acute disease. Zheng Landin MD on January 07, 2018 at 20:01 Board Certified Radiologist. This report was verified electronically.
[2018-01-07] MEDS: FLUTICASONE PROPIONATE 50 MCG/ACT 16 GM NASAL SPRAY EACH NARE SCH (21:00)
[2018-01-07] MEDS: DOCUSATE SODIUM 50 MG/SENNA 8.6 MG TAB PO SCH (21:17)
[2018-01-08] VITALS (10 sets, daily range): BP systolic 127–176; BP diastolic 71–100; PULSE 74–83; RESP 18–20; TEMP 97.3–98; O2SAT 90–96
[2018-01-08] MEDS: RESP: IPRATROPIUM 0.5 MG/2.5 ML NEB NEB SCH ×2 (04:00→08:24)
[2018-01-08] MEDS: CAPTOPRIL 50 MG TAB PO SCH ×2 (06:12→17:12)
[2018-01-08] MEDS: INSULIN ASPART SUPPLEMENTAL SCALE SQ SCH ×4 (08:00→21:00)
[2018-01-08] MEDS: RESP: ALBUTEROL 2.5 MG/IPRATROPIUM 0.5 MG NEB (SCH) NEB ×4 (08:24→19:46)
[2018-01-08] MEDS: AZITHROMYCIN 250 MG TAB PO SCH (08:52)
[2018-01-08] MEDS: PRAVASTATIN SOD 40 MG TAB PO SCH (08:52)
[2018-01-08] MEDS: POTASSIUM CHLORIDE 20 MEQ CONTROLLED RELEASE TAB PO SCH (08:52)
[2018-01-08] MEDS: LEVOTHYROXINE SODIUM 100 MCG TAB PO SCH (08:52)
[2018-01-08] MEDS: METOPROLOL TARTRATE 25 MG TAB PO SCH ×2 (08:52→21:08)
[2018-01-08] MEDS: SERTRALINE HCL 100 MG TAB PO SCH (08:52)
[2018-01-08] MEDS: amLODIPine BESYLATE 5 MG TAB PO SCH (08:53)
[2018-01-08] MEDS: ACETAMINOPHEN/HYDROcodone 325 MG/7.5 MG TAB PO SCH ×4 (08:53→21:08)
[2018-01-08] MEDS: GABAPENTIN 300 MG CAP PO SCH ×2 (08:53→21:08)
[2018-01-08] MEDS: POLYETHYLENE GLYCOL 17 GM PKG PO SCH (08:53)
[2018-01-08] MEDS: DABIGATRAN ETEXILATE 150 MG CAP PO SCH ×2 (08:53→21:00)
[2018-01-08] MEDS: DULoxetine HCl DR 20 MG CAP PO SCH (08:53)
[2018-01-08] MEDS: PANTOPRAZOLE SOD 20 MG DELAYED RELEASE TAB PO SCH (08:53)
[2018-01-08] MEDS: CHOLECALCIFEROL (VIT D3) 1000 UNIT TAB PO SCH (08:53)
[2018-01-08] MEDS: FUROSEMIDE 40 MG TAB PO SCH (08:53)
[2018-01-08] MEDS: SODIUM CHLORIDE 0.9% FLUSH 10 ML FLUSH IV FLUSH SCH ×2 (08:54→21:00)
[2018-01-08] MEDS: methylPREDNISolone SOD SUCC 40 MG/1 ML VIAL IV PUSH SCH (08:54)
[2018-01-08] MEDS: INSULIN DETEMIR 100 UNITS/ML VIAL SQ SCH (08:54)
[2018-01-08] MEDS: BUDESONIDE-FORMOTEROL 160/4.5 MCG INHALER INH SCH ×2 (08:55→21:00)
--- NOTE | 2018-01-08 09:04 | HHI.PR ---
Subjective Remarks awake and alert, no complains of chest pains or shortness of breath states baseline ambulatory with a walker Objective Vitals Vital Signs Date Time Temp Pulse Resp B/P (MAP) Pulse Ox O2 Delivery O2 Flow Rate FiO2 01/08/18 08:24 93 21 01/08/18 04:17 97.3 81 20 148/87 (107) 93 01/07/18 23:55 98.1 79 18 170/79 (109) 92 01/07/18 20:22 92 01/07/18 20:13 Room Air 01/07/18 19:54 98.2 62 20 124/60 (81) 92 01/07/18 16:04 98.0 76 22 130/79 (96) 95 01/07/18 16:00 79 01/07/18 12:04 97.8 84 22 116/71 (86) 97 01/07/18 12:00 66 01/07/18 10:10 95 Nasal Cannula 2.00 I/O 01/07/18 01/07/18 01/07/18 01/08/18 01/08/18 01/08/18 07:00 15:00 23:00 07:00 15:00 23:00 Intake Total 220 ml 240 ml 240 ml Output Total 800 ml Balance -580 ml 240 ml 240 ml Intake Oral 220 ml 240 ml 240 ml Output Urine Total 800 ml # Voids 5 4 # Bowel Movements 1 4 0 Result Diagram: 01/06/18 1324 01/07/18 0742 Imaging Last Impressions Renal Ultrasound 01/07/18 0000 Signed Impressions: Service Date/Time: December 18:58 - CONCLUSION: No acute disease. Zheng Landin MD Chest X-Ray 01/03/18 1115 Signed Impressions: Service Date/Time: Wednesday, January 03, 2018 11:25 - CONCLUSION: Cardiomegaly. No focal infiltrate or pulmonary vascular congestion. Navneet Guevara MD CT Angiography 01/03/18 0000 Signed Impressions: Service Date/Time: Wednesday, January 03, 2018 13:21 - CONCLUSION: 1. No evidence of pulmonary embolism. 2. Minimal scattered fibrotic scarring and peripheral bleb formation bilaterally. 3. Cardiomegaly and coronary artery calcifications. 4. Mild splenomegaly. 5. Degenerative changes, scoliosis and multiple chronic compression deformities involving the thoracic spine. 6. Small hiatal hernia. Navneet Guevara MD Objective Remarks awake and alert anicteric irregular rhythm no rales no wheezes, equal breath sounds abdomen-soft, nontender extremities- no edema A/P Assessment and Plan 87 years old female -E coli sepsis secondary to UTI: on Rocephin IV every 24 hours. 01/03- started ID consulted for recommendation Renal Ultrasound-unremarkable ff Repeat blood cultures to ensure clearance MINERVA- improved underlying CKD stage III per daughter: Creatinine noted to be 1.52 with baseline of 0.82 on 04/03/16 per records (no recent Cr available). ff BMP renal ultrasound negative COPD exacerbation with hypercapnic respiratory failure:- respiratory reece improving Chronic HAD Dr. Le-ff- - patient pulmologist- change to po prendisone 20 mg bid continue home symbicort. azithromycin, hypothyroidism: Resume patient's home dose of Synthroid CHF: Stable. Heart healthy diet with fluid restriction at 1500 mL's per day. Continue patient's the Lasix. Replete potassium and continues potassium supplementation. Atrial fibrillation: Stable. on Pradaxa. Apparently per daughter she was supposed to be on digoxin however this is not listed on [facility] MAR. At this time, since pt does have hx of CHF, on metoprolol 25mg po BID w holding parameters. ( i.e pt being on both lasix and bumex, captopril/losartan...). Cardiology ff Hypertension: continue captopril, amlodipine. (per daughter pt does have stage III renal disease) Diabetes insulin-dependent: resume pt's home dose of levemir. cover w medium ISS. continue Januvia but renally dose it. monitor BS. anxiety: resume med Hyperlipidemia: resume med Chronic back pain: resume home meds. resume stool softeners as well. DVT prophylaxis- patient on Pradaxa PT/OT consult DC planning- SNF Mauri Madrigal MD Jan 08, 2018 09:04
--- NOTE | 2018-01-08 12:37 | PD.CARD.PN ---
Subjective Subjective Remarks alert in nad Objective Medications Current Medications Medications (Trade) Dose Ordered Sig/Vickie Route Start Time Stop Time Status Last Admin (NS Flush) 2 ml UNSCH PRN IV FLUSH 01/03/18 15:15 (NS Flush) 2 ml BID IV FLUSH 01/03/18 21:00 01/08/18 08:54 (Zofran Inj) 4 mg Q6H PRN IVP 01/03/18 15:15 (Narcan Inj) 0.4 mg UNSCH PRN IV PUSH 01/03/18 15:15 (Senokot) 17.2 mg Q12H PRN PO 01/03/18 15:15 (Dulcolax Supp) 10 mg DAILY PRN RECTAL 01/03/18 15:15 (Lactulose Liq) 30 ml DAILY PRN PO 01/03/18 15:15 (Atrovent Neb) 0.5 mg Q6HR NEB NEB 01/03/18 16:00 01/04/18 15:34 (Atrovent Neb) 0.5 mg Q4HR NEB PRN NEB 01/03/18 15:15 Ceftriaxone Sodium 1000 mg/ Sodium Chloride 100 ml @ 200 mls/hr Q24H IV 01/03/18 17:00 01/07/18 17:19 (Levemir Inj) 50 units DAILY SQ 01/04/18 09:00 01/08/18 08:54 (Januvia) 25 mg DAILY PO 01/04/18 09:00 Future Hold 01/05/18 12:19 (Xanax) 0.25 mg DAILY PRN PO 01/03/18 17:30 (Norvasc) 5 mg DAILY PO 01/04/18 09:00 01/08/18 08:53 (Symbicort 160-4.5 Mcg Inh) 2 puff Q12HR INH 01/03/18 21:00 01/08/18 08:55 (Capoten) 50 mg BIDAC PO 01/04/18 07:00 01/08/18 06:12 (Vitamin D3) 1,000 units DAILY PO 01/04/18 09:00 01/08/18 08:53 (Pradaxa) 150 mg BID PO 01/03/18 21:00 01/08/18 08:53 (Cymbalta Dr) 20 mg DAILY PO 01/04/18 09:00 01/08/18 08:53 (Lasix) 40 mg DAILY PO 01/04/18 09:00 01/08/18 08:53 ([place] 7.5-325 Mg) 1 tab QID PO 01/03/18 18:00 01/08/18 08:53 (Synthroid) 100 mcg DAILY PO 01/04/18 09:00 01/08/18 08:52 (KCl) 20 meq DAILY PO 01/04/18 09:00 01/08/18 08:52 (Zoloft) 100 mg DAILY PO 01/04/18 09:00 01/08/18 08:52 (Protonix) 20 mg DAILY PO 01/04/18 09:00 01/08/18 08:53 (Pravachol) 40 mg DAILY PO 01/04/18 09:00 01/08/18 08:52 (D50w (Vial) Inj) 50 ml UNSCH PRN IV PUSH 01/03/18 17:45 (Glucagon Inj) 1 mg UNSCH PRN OTHER 01/03/18 17:45 (NovoLOG SUPPLEMENTAL SCALE) 1 ACHS SLIDING SCALE SQ 01/03/18 21:00 01/07/18 17:00 (Flonase Klever Spr) 2 spray HS EACH NARE 01/04/18 21:00 (Miralax) 17 gm DAILY PO 01/04/18 09:00 01/08/18 08:53 (Shaylee-Colace) 1 tab HS PO 01/03/18 21:00 01/07/18 21:17 (Zithromax) 500 mg DAILY PO 01/03/18 18:15 01/08/18 08:52 (Milk Of Magnesia Liq) 30 ml DAILY PRN PO 01/03/18 18:15 (Lopressor) 25 mg Q12HR PO 01/03/18 21:00 01/08/18 08:52 (Duoneb Neb) 1 ampule QID NEB NEB 01/04/18 20:00 01/08/18 11:58 (Neurontin) 300 mg BID PO 01/06/18 21:00 01/08/18 08:53 (Deltasone) 20 mg BID PO 01/08/18 21:00 Vital Signs / I&O Vital Signs Date Time Temp Pulse Resp B/P (MAP) Pulse Ox O2 Delivery O2 Flow Rate FiO2 01/08/18 08:24 93 21 01/08/18 08:00 Room Air 01/08/18 08:00 97.9 82 20 176/96 (122) 96 01/08/18 04:17 97.3 81 20 148/87 (107) 93 01/07/18 23:55 98.1 79 18 170/79 (109) 92 01/07/18 20:22 92 01/07/18 20:13 Room Air 01/07/18 19:54 98.2 62 20 124/60 (81) 92 01/07/18 16:04 98.0 76 22 130/79 (96) 95 01/07/18 16:00 79 I/O 01/07/18 01/07/18 01/07/18 01/08/18 01/08/18 01/08/18 07:00 15:00 23:00 07:00 15:00 23:00 Intake Total 220 ml 240 ml 240 ml Output Total 800 ml Balance -580 ml 240 ml 240 ml Intake Oral 220 ml 240 ml 240 ml Output Urine Total 800 ml # Voids 5 4 # Bowel Movements 1 4 0 Physical Exam GENERAL: SKIN: Warm and dry. HEAD: Normocephalic. EYES: No scleral icterus. No injection or drainage. NECK: Supple, trachea midline. No JVD or lymphadenopathy. CARDIOVASCULAR: Regular rate and rhythm without murmurs, gallops, or rubs. RESPIRATORY: Breath sounds equal bilaterally. No accessory muscle use. GASTROINTESTINAL: Abdomen soft, non-tender, nondistended. MUSCULOSKELETAL: No cyanosis, or edema. BACK: Nontender without obvious deformity. No CVA tenderness. Assessment and Plan Problem List: (1) Atrial fibrillation ICD Codes: I48.91 - Unspecified atrial fibrillation (2) Hypertension ICD Codes: I10 - Essential (primary) hypertension Assessment and Plan 1.) Atrial fib - chadsvasc score=3, continue pradaxa, rate controlled, assymptomatic 2.) HTN - increase norvasc to 10 mg qd John Salcedo MD Jan 08, 2018 12:37
--- NOTE | 2018-01-08 13:59 | ECHRPT ---
Indication: A FIB FLUTTER CONCLUSIONS Normal left ventricular size. Wall thickness is measured at the upper limits of normal. The left ventricular systolic function is low normal with an estimated ejection fraction in the rang e of 50- 55%. Mitral annular calcification is present. Trace mitral valve regurgitation. Aortic valve sclerosis is present. There is trace tricuspid valve regurgitation. The estimated pulmonary arterial pressure is 28 mmHg. BP: / HR: Rhythm: MEASUREMENTS (Male / Female) Normal Values Technical Quality: 2D ECHO LV Diastolic Diameter PLAX 4.3 cm 4.2 - 5.9 / 3.9 - 5.3 cm LV Systolic Diameter PLAX 3.4 cm IVS Diastolic Thickness 1.4 cm 0.6 - 1.0 / 0.6 - 0.9 cm LVPW Diastolic Thickness 0.9 cm 0.6 - 1.0 / 0.6 - 0.9 cm LV Relative Wall Thickness 0.5 RV Internal Dim ED PLAX 1.9 cm M-MODE Aortic Root Diameter MM 3.1 cm AV Cusp Separation MM 1.5 cm DOPPLER Mitral E Point Velocity 91.3 cm/s Mitral A Point Velocity 31.1 cm/s Mitral E to A Ratio 2.9 TR Peak Velocity 240.0 cm/s TR Peak Gradient 23.0 mmHg Right Atrial Pressure 5.0 mmHg Pulmonary Artery Systolic Pressu 28.0 mmHg Right Ventricular Systolic Press 28.0 mmHg FINDINGS LEFT VENTRICLE Normal left ventricular size. Wall thickness is measured at the upper limits of normal. The left ventricular systolic function is low normal with an estimated ejection fraction in the rang e of 50- 55%. RIGHT VENTRICLE Normal right ventricular size and systolic function. LEFT ATRIUM The left atrial size is normal. RIGHT ATRIUM The right atrial size is normal. ATRIAL SEPTUM Normal atrial septal thickness without atrial level shunting by limited color doppler interrogation. AORTA The aortic root and proximal ascending aorta are normal in size on limited imaging. MITRAL VALVE Mitral annular calcification is present. Trace mitral valve regurgitation. AORTIC VALVE Aortic valve sclerosis is present. TRICUSPID VALVE There is trace tricuspid valve regurgitation. The estimated pulmonary arterial pressure is 28 mmHg. PULMONARY VALVE No pulmonary valve regurgitation or stenosis. VESSELS The inferior vena cava is normal in size. PERICARDIUM No pericardial effusion. Ramsey Wayne MD, FACC (Electronically Signed) Final Date:08 January 2018 13:58
--- NOTE | 2018-01-08 17:06 | PD.ID.CON ---
History of Present Illness Service ID Consult Requested By Dr Madrigal Reason for Consult UTI, bacteremia Primary Care Physician Santos Aguirre M.D. Diagnoses: History of Present Illness Patient is an 87-year-old female with past medical history with multiple medical probelms including hypothyroidism, CHF, atrial fibrillation, hypertension, diabetes insulin-dependent, anxiety, hyperlipidemia, chronic back pain who presented to the emergency room sp fall She apparebntly had some fever and cough few days prior to her presentation and it was felt that she had a cold She was put on Keflex at the beginning of December with no improvement. Her chest x-ray which was negative. Patient complains of shortness of breath. She presetnd with low grade fever and significant bamndemia of 32 % She denies any disuria, abd or back pain Her UA was abnorma;, urine clx and both blood clx are positive for E.coli 4/ Pt significantlyn improved Review of Systems ROS Limitations: Poor Historian Past Family Social History Allergies: Coded Allergies: albuterol (Verified Allergy, Unknown, 01/03/18) Past Medical History hypothyroidism, CHF, atrial fibrillation, hypertension, diabetes insulin- dependent, anxiety, hyperlipidemia, chronic back pain Past Surgical History Cataract surgery, tonsillectomy, lumbar laminectomy in 2010, right breast lumpectomy, left femoral embolectomy complicated by abscess formation and status post I&D Active Ordered Medications Medications where reviewed in EMR Antibiotics Include: CFTX Family History Mother and father had heart issues. Mother at age 91, had CVAs and fall Social History Smoked for 2 years many many years ago, states she smoked less than a pack a day. Will drink wine 2 times a week. Denies illegal drug use Physical Exam Vital Signs Vital Signs Date Time Temp Pulse Resp B/P (MAP) Pulse Ox O2 Delivery O2 Flow Rate FiO2 01/08/18 12:00 97.9 75 18 169/100 (123) 90 01/08/18 08:24 93 21 01/08/18 08:07 77 01/08/18 08:00 Room Air 01/08/18 08:00 97.9 82 20 176/96 (122) 96 01/08/18 04:17 97.3 81 20 148/87 (107) 93 01/07/18 23:55 98.1 79 18 170/79 (109) 92 01/07/18 20:22 92 01/07/18 20:13 Room Air 01/07/18 19:54 98.2 62 20 124/60 (63) 92 Physical Exam CONSTITUTIONAL/GENERAL: This is an adequately nourished patient, in no apparent distress. TUBES/LINES/DRAINS: SKIN: No jaundice, rashes, or lesions. Skin temperature appropriate. Not diaphoretic. HEAD: Atraumatic. Normocephalic. EYES: Pupils equal and round and reactive. Extraocular motions intact. No scleral icterus. No injection or drainage. Fundi not examined. ENT: Hearing grossly normal. Nose without bleeding or purulent drainage. Throat without visible erythema, exudates, masses, or lesions. NECK: Trachea midline. Supple, nontender. No palpable thyroid enlargement or nodularity. CARDIOVASCULAR: Regular rate and rhythm without murmurs, gallops, or rubs. No JVD. Peripheral pulses symmetric. RESPIRATORY/CHEST: Symmetric, unlabored respirations. Clear to auscultation. Breath sounds equal bilaterally. No wheezes, rales, or rhonchi. GASTROINTESTINAL: Abdomen soft, non-tender, nondistended. No hepato-splenomegaly , or palpable masses. No guarding. Bowel sounds present. GENITOURINARY: Without palpable bladder distension. MUSCULOSKELETAL: Extremities without clubbing, cyanosis, or edema. No joint tenderness or effusion noted. No calf tenderness. No mottling or clubbing. LYMPHATICS: No palpable cervical or supraclavicular adenopathy. NEUROLOGICAL: Awake and alert. Motor and sensory grossly within normal limits. Follows commands. Clear speech . Moves all extremities. PSYCHIATRIC: No obvious anxiety/depression. no apparent hallucinations or other psychotic thought process. Laboratory Date/Time Source Procedure Growth Status 01/07/18 14:30 Blood Peripheral Aerobic Blood Culture - Preliminary NO GROWTH IN 1 DAY Resulted 01/07/18 14:30 Blood Peripheral Anaerobic Blood Culture - Preliminary NO GROWTH IN 1 DAY Resulted 01/03/18 11:40 Nasal Aspirate Influenza Types A,B Antigen (LENNIE) - Final NEGATIVE FOR FLU A AND B ANTIGEN.... Complete 01/03/18 11:40 Urine Catheterized Urine Urine Culture - Final Escherichia Coli Complete Result Diagram: 01/06/18 1324 01/07/18 0742 Imaging Last Impressions Renal Ultrasound 01/07/18 0000 Signed Impressions: Service Date/Time: December 18:58 - CONCLUSION: No acute disease. Zheng Landin MD Chest X-Ray 01/03/18 1115 Signed Impressions: Service Date/Time: Wednesday, January 03, 2018 11:25 - CONCLUSION: Cardiomegaly. No focal infiltrate or pulmonary vascular congestion. Navneet Guevara MD CT Angiography 01/03/18 0000 Signed Impressions: Service Date/Time: Wednesday, January 03, 2018 13:21 - CONCLUSION: 1. No evidence of pulmonary embolism. 2. Minimal scattered fibrotic scarring and peripheral bleb formation bilaterally. 3. Cardiomegaly and coronary artery calcifications. 4. Mild splenomegaly. 5. Degenerative changes, scoliosis and multiple chronic compression deformities involving the thoracic spine. 6. Small hiatal hernia. Navneet Guevara MD Assessment and Plan Assessment and Plan UTI with sepsis 2/2 E.coli Rec's: dc CFTX cipro or levaquin 500 mg po daily x 7 days Zuleyka Salcedo MD Jan 08, 2018 17:06
[2018-01-08] MEDS: cefTRIAXone INJ 1,000 MG in SODIUM CHLORIDE 0.9% INJ 100 ML IV SCH (17:11)
[2018-01-08] MEDS ORDERED: LEVOFLOXACIN 500 MG TAB PO SCH (18:00)
--- NOTE | 2018-01-08 18:07 | HHI.PR ---
Subjective Remarks She is doing well.. On o2 2 L . Off BiPAP. No SOB at rest. Objective Vital Signs Date Time Temp Pulse Resp B/P (MAP) Pulse Ox O2 Delivery O2 Flow Rate FiO2 01/08/18 16:00 97.8 74 18 127/79 (95) 94 01/08/18 12:00 97.9 75 18 169/100 (123) 90 01/08/18 08:24 93 21 01/08/18 08:07 77 01/08/18 08:00 Room Air 01/08/18 08:00 97.9 82 20 176/96 (122) 96 01/08/18 04:17 97.3 81 20 148/87 (107) 93 01/07/18 23:55 98.1 79 18 170/79 (109) 92 01/07/18 20:22 92 01/07/18 20:13 Room Air 01/07/18 19:54 98.2 62 20 124/60 (81) 92 I/O 01/07/18 01/07/18 01/07/18 01/08/18 01/08/18 01/08/18 07:00 15:00 23:00 07:00 15:00 23:00 Intake Total 220 ml 240 ml 240 ml Output Total 800 ml Balance -580 ml 240 ml 240 ml Intake Oral 220 ml 240 ml 240 ml Output Urine Total 800 ml # Voids 5 4 # Bowel Movements 1 4 0 Result Diagram: 01/06/18 1324 01/07/18 0742 Objective Remarks GENERAL: This obese, elderly, white female alert and has mild clubbing and minimal peripheral edema. No lymphadenopathy. HEENT: Head is normocephalic. Pupils reactive and equal. Tongue is moist. Throat is clear. Nasal mucosa clear NECK: Supple, no bruits. No thyroid enlargement or lymphadenopathy. CHEST: Increased AP diameter with prolonged expirations, with occasional crackles at the lung bases. HEART: Sounds are irregular, S1 and S2. No murmur. No S3. ABDOMEN: Soft, nontender. No organomegaly. Bowel sounds active. EXTREMITIES, NEUROLOGIC: No edema, with varicosities. No calf tenderness. Reflexes are 1+. There are no gross motor deficits. Cranial nerves grossly intact. SKIN: No lesions. Assessment and Plan Assessment and Plan IMPRESSION: 1. Urinary tract infection with sepsis. 2. Chronic obstructive pulmonary disease with acute exacerbation. 3. Chronic bronchitis and asthma. 4. Congestive heart failure, compensated. 5. Chronic atrial fibrillation. 6. Hypertension. 7. Diabetes mellitus. 8. Possible MITCH. Plan : 1. Will arrange home O2 2 L 2. D/C Solumedrol 3. Symbicort 160/4.5 mcg , 2 puffs bId 4. Continue antibiotics and switch to PO ceftin for 7 days 5. Will get Sleep study as OP 6. Prednisone 20 mg daily and taper in 2 weeks 7. Transfer to rehab Miko Le MD Jan 08, 2018 18:07
[2018-01-08] MEDS ORDERED: predniSONE 20 MG TAB PO SCH (21:00)
[2018-01-08] MEDS: FLUTICASONE PROPIONATE 50 MCG/ACT 16 GM NASAL SPRAY EACH NARE SCH (21:00)
[2018-01-08] MEDS: predniSONE 10 MG TAB PO SCH (21:07)
[2018-01-08] MEDS: DOCUSATE SODIUM 50 MG/SENNA 8.6 MG TAB PO SCH (21:07)
[2018-01-09] VITALS (7 sets, daily range): BP systolic 127–198; BP diastolic 80–95; PULSE 72–91; RESP 18–20; TEMP 97.3–98.6; O2SAT 92–96
[2018-01-09] MEDS: RESP: IPRATROPIUM 0.5 MG/2.5 ML NEB NEB SCH ×2 (04:00→10:36)
[2018-01-09] MEDS: CAPTOPRIL 50 MG TAB PO SCH (06:06)
[2018-01-09] MEDS: INSULIN ASPART SUPPLEMENTAL SCALE SQ SCH ×2 (08:00→12:00)
--- NOTE | 2018-01-09 08:54 | PD.CARD.PN ---
Subjective Subjective Remarks asleep in nad Objective Medications Current Medications Medications (Trade) Dose Ordered Sig/Vickie Route Start Time Stop Time Status Last Admin (NS Flush) 2 ml UNSCH PRN IV FLUSH 01/03/18 15:15 (NS Flush) 2 ml BID IV FLUSH 01/03/18 21:00 01/08/18 21:00 (Zofran Inj) 4 mg Q6H PRN IVP 01/03/18 15:15 (Narcan Inj) 0.4 mg UNSCH PRN IV PUSH 01/03/18 15:15 (Senokot) 17.2 mg Q12H PRN PO 01/03/18 15:15 (Dulcolax Supp) 10 mg DAILY PRN RECTAL 01/03/18 15:15 (Lactulose Liq) 30 ml DAILY PRN PO 01/03/18 15:15 (Atrovent Neb) 0.5 mg Q6HR NEB NEB 01/03/18 16:00 01/04/18 15:34 (Atrovent Neb) 0.5 mg Q4HR NEB PRN NEB 01/03/18 15:15 (Levemir Inj) 50 units DAILY SQ 01/04/18 09:00 01/08/18 08:54 (Januvia) 25 mg DAILY PO 01/04/18 09:00 Future Hold 01/05/18 12:19 (Xanax) 0.25 mg DAILY PRN PO 01/03/18 17:30 (Symbicort 160-4.5 Mcg Inh) 2 puff Q12HR INH 01/03/18 21:00 01/08/18 21:00 (Capoten) 50 mg BIDAC PO 01/04/18 07:00 01/09/18 06:06 (Vitamin D3) 1,000 units DAILY PO 01/04/18 09:00 01/08/18 08:53 (Pradaxa) 150 mg BID PO 01/03/18 21:00 01/08/18 21:00 (Cymbalta Dr) 20 mg DAILY PO 01/04/18 09:00 01/08/18 08:53 (Lasix) 40 mg DAILY PO 01/04/18 09:00 01/08/18 08:53 ([place] 7.5-325 Mg) 1 tab QID PO 01/03/18 18:00 01/08/18 21:08 (Synthroid) 100 mcg DAILY PO 01/04/18 09:00 01/08/18 08:52 (KCl) 20 meq DAILY PO 01/04/18 09:00 01/08/18 08:52 (Zoloft) 100 mg DAILY PO 01/04/18 09:00 01/08/18 08:52 (Protonix) 20 mg DAILY PO 01/04/18 09:00 01/08/18 08:53 (Pravachol) 40 mg DAILY PO 01/04/18 09:00 01/08/18 08:52 (D50w (Vial) Inj) 50 ml UNSCH PRN IV PUSH 01/03/18 17:45 (Glucagon Inj) 1 mg UNSCH PRN OTHER 01/03/18 17:45 (NovoLOG SUPPLEMENTAL SCALE) 1 ACHS SLIDING SCALE SQ 01/03/18 21:00 01/07/18 17:00 (Flonase Klever Spr) 2 spray HS EACH NARE 01/04/18 21:00 (Miralax) 17 gm DAILY PO 01/04/18 09:00 01/08/18 08:53 (Shaylee-Colace) 1 tab HS PO 01/03/18 21:00 01/08/18 21:07 (Milk Of Magnesia Liq) 30 ml DAILY PRN PO 01/03/18 18:15 (Lopressor) 25 mg Q12HR PO 01/03/18 21:00 01/08/18 21:08 (Neurontin) 300 mg BID PO 01/06/18 21:00 01/08/18 21:08 (Norvasc) 10 mg DAILY PO 01/09/18 09:00 (Levaquin) 500 mg DAILY@1800 PO 01/08/18 18:00 01/15/18 18:01 01/08/18 18:13 (Deltasone) 10 mg BID PO 01/08/18 21:00 01/08/18 21:07 Vital Signs / I&O Vital Signs Date Time Temp Pulse Resp B/P (MAP) Pulse Ox O2 Delivery O2 Flow Rate FiO2 01/09/18 04:00 83 01/09/18 04:00 98.2 87 20 189/86 (120) 95 01/09/18 04:00 Room Air 01/09/18 00:00 75 01/09/18 00:00 Room Air 01/09/18 00:00 98.4 72 20 127/80 (96) 95 01/08/18 21:44 81 01/08/18 20:00 98.0 80 20 152/71 (98) 95 01/08/18 20:00 Room Air 01/08/18 19:48 96 21 01/08/18 16:00 97.8 74 18 127/79 (95) 94 01/08/18 15:51 83 01/08/18 12:00 97.9 75 18 169/100 (123) 90 I/O 01/08/18 01/08/18 01/08/18 01/09/18 01/09/18 01/09/18 07:00 15:00 23:00 07:00 15:00 23:00 Intake Total 240 ml Balance 240 ml Intake Oral 240 ml # Voids 4 2 # Bowel Movements 0 Physical Exam GENERAL: SKIN: Warm and dry. HEAD: Normocephalic. EYES: No scleral icterus. No injection or drainage. NECK: Supple, trachea midline. No JVD or lymphadenopathy. CARDIOVASCULAR: Regular rate and rhythm without murmurs, gallops, or rubs. RESPIRATORY: Breath sounds equal bilaterally. No accessory muscle use. GASTROINTESTINAL: Abdomen soft, non-tender, nondistended. MUSCULOSKELETAL: No cyanosis, or edema. BACK: Nontender without obvious deformity. No CVA tenderness. Assessment and Plan Problem List: (1) Atrial fibrillation ICD Codes: I48.91 - Unspecified atrial fibrillation (2) Hypertension ICD Codes: I10 - Essential (primary) hypertension Assessment and Plan 1.) Atrial fib - chadsvasc score=3, continue pradaxa, rate controlled, assymptomatic 2.) HTN - increase norvasc to 10 mg qd, bp improving John Salcedo MD Jan 09, 2018 08:54
[2018-01-09] MEDS: DABIGATRAN ETEXILATE 150 MG CAP PO SCH (09:00)
[2018-01-09] MEDS: FUROSEMIDE 40 MG TAB PO SCH (09:00)
[2018-01-09] MEDS: LEVOTHYROXINE SODIUM 100 MCG TAB PO SCH (09:38)
[2018-01-09] MEDS: POTASSIUM CHLORIDE 20 MEQ CONTROLLED RELEASE TAB PO SCH (09:38)
[2018-01-09] MEDS: PRAVASTATIN SOD 40 MG TAB PO SCH (09:38)
[2018-01-09] MEDS: ACETAMINOPHEN/HYDROcodone 325 MG/7.5 MG TAB PO SCH ×2 (09:38→13:32)
[2018-01-09] MEDS: METOPROLOL TARTRATE 25 MG TAB PO SCH (09:39)
[2018-01-09] MEDS: INSULIN DETEMIR 100 UNITS/ML VIAL SQ SCH (09:39)
[2018-01-09] MEDS: PANTOPRAZOLE SOD 20 MG DELAYED RELEASE TAB PO SCH (09:39)
[2018-01-09] MEDS: predniSONE 10 MG TAB PO SCH (09:39)
[2018-01-09] MEDS: POLYETHYLENE GLYCOL 17 GM PKG PO SCH (09:39)
[2018-01-09] MEDS: SERTRALINE HCL 100 MG TAB PO SCH (09:39)
[2018-01-09] MEDS: GABAPENTIN 300 MG CAP PO SCH (09:39)
[2018-01-09] MEDS: CHOLECALCIFEROL (VIT D3) 1000 UNIT TAB PO SCH (09:39)
[2018-01-09] MEDS: SODIUM CHLORIDE 0.9% FLUSH 10 ML FLUSH IV FLUSH SCH (09:40)
[2018-01-09] MEDS: BUDESONIDE-FORMOTEROL 160/4.5 MCG INHALER INH SCH (09:41)
[2018-01-09] MEDS: DULoxetine HCl DR 20 MG CAP PO SCH (13:32)
[2018-01-09] MEDS ORDERED: LEVA500T33 PO (13:51)
[2018-01-09] MEDS ORDERED: METO25TA3 PO (13:51)
[2018-01-09] MEDS ORDERED: AMLO10 PO (13:51)
[2018-01-09] MEDS ORDERED: Ipratropium Bromide NEB (13:55)
--- NOTE | 2018-01-09 14:03 | HHI.PR ---
Subjective Remarks en with daughter afebrile no urinary complains afebrile wanting to get back to SNF Objective Vitals Vital Signs Date Time Temp Pulse Resp B/P (MAP) Pulse Ox O2 Delivery O2 Flow Rate FiO2 01/09/18 12:00 98.6 86 18 161/88 (112) 92 01/09/18 10:45 20 01/09/18 10:37 94 21 01/09/18 08:00 97.3 91 18 198/95 (129) 96 01/09/18 08:00 Room Air 01/09/18 07:45 79 01/09/18 04:00 83 01/09/18 04:00 98.2 87 20 189/86 (120) 95 01/09/18 04:00 Room Air 01/09/18 00:00 75 01/09/18 00:00 Room Air 01/09/18 00:00 98.4 72 20 127/80 (96) 95 01/08/18 21:44 81 01/08/18 20:00 98.0 80 20 152/71 (98) 95 01/08/18 20:00 Room Air 01/08/18 19:48 96 21 01/08/18 16:00 97.8 74 18 127/79 (95) 94 01/08/18 15:51 83 I/O 01/08/18 01/08/18 01/08/18 01/09/18 01/09/18 01/09/18 07:00 15:00 23:00 07:00 15:00 23:00 Intake Total 240 ml Balance 240 ml Intake Oral 240 ml # Voids 4 2 # Bowel Movements 0 Result Diagram: 01/06/18 1324 01/07/18 0742 Imaging Last Impressions Renal Ultrasound 01/07/18 0000 Signed Impressions: Service Date/Time: December 18:58 - CONCLUSION: No acute disease. Zheng Landin MD Chest X-Ray 01/03/18 1115 Signed Impressions: Service Date/Time: Wednesday, January 03, 2018 11:25 - CONCLUSION: Cardiomegaly. No focal infiltrate or pulmonary vascular congestion. Navneet Guevara MD CT Angiography 01/03/18 0000 Signed Impressions: Service Date/Time: Wednesday, January 03, 2018 13:21 - CONCLUSION: 1. No evidence of pulmonary embolism. 2. Minimal scattered fibrotic scarring and peripheral bleb formation bilaterally. 3. Cardiomegaly and coronary artery calcifications. 4. Mild splenomegaly. 5. Degenerative changes, scoliosis and multiple chronic compression deformities involving the thoracic spine. 6. Small hiatal hernia. Navneet Guevara MD Objective Remarks awake and alert anicteric irregular rhythm no rales no wheezes, equal breath sounds abdomen-soft, nontender extremities- no edema A/P Assessment and Plan 87 years old female -E coli sepsis secondary to UTI: on Rocephin IV every 24 hours. 01/03- started ID consulted for recommendation Renal Ultrasound-unremarkable ff Repeat blood cultures to ensure clearance- no growth for 2 days continue on Levaquin till 01/15 per ID recommendations MINERVA- improved underlying CKD stage III per daughter: Creatinine noted to be 1.52 with baseline of 0.82 on 04/03/16 per records (no recent Cr available). improved renal ultrasound negative COPD exacerbation with hypercapnic respiratory failure:- respiratory reece improving Chronic HAD Dr. Le-ff- - patient pulmologist- change to po prendisone continue home symbicort. azithromycin, hypothyroidism: Resume patient's home dose of Synthroid CHF: Stable. Heart healthy diet with fluid restriction at 1500 mL's per day. Continue patient's the Lasix. Replete potassium and continues potassium supplementation. Atrial fibrillation: Stable. on Pradaxa. Apparently per daughter she was supposed to be on digoxin however this is not listed on [facility]. At this time, since pt does have hx of CHF, on metoprolol 25mg po BID w holding parameters. continue Captopril. Lasix Cardiology ff- OP ff up with Dr. Salcedo Amlodipine up to 10 mg daily Hypertension: continue captopril, amlodipine. (per daughter pt does have stage III renal disease) Diabetes insulin-dependent: resume pt's home dose of levemir. cover w medium ISS. continue Januvia but renally dose it. monitor BS. anxiety: resume med Hyperlipidemia: resume med Chronic back pain: resume home meds. resume stool softeners as well. DVT prophylaxis- patient on Pradaxa PT/OT consult DC planning- SNF today aMuri Madrigal MD Jan 09, 2018 14:03
[2018-01-09] MEDS ORDERED: OXYGENDME NAS.CANULA (14:05)
--- NOTE | 2018-01-09 14:06 | HHI.DS ---
Discharge Summary Admission Date Jan 03, 2018 at 15:10 Discharge Date: Jan 09, 2018 Admitting Diagnosis UTI, COPD exacerbation (1) E. coli sepsis ICD Code: A41.51 - Sepsis due to Escherichia coli [E. coli] Diagnosis: Principal Status: Acute (2) MINERVA with unerlying CKD Diagnosis: Principal Status: Acute (3) Atrial fibrillation ICD Code: I48.91 - Unspecified atrial fibrillation Diagnosis: Secondary Status: Chronic (4) DM Diagnosis: Secondary Status: Chronic (5) COPD (chronic obstructive pulmonary disease) ICD Code: J44.9 - Chronic obstructive pulmonary disease, unspecified Diagnosis: Secondary Status: Chronic (6) COPD Procedures none Brief History - From Admission Patient is an 87-year-old female with past medical history of hypothyroidism, CHF, atrial fibrillation, hypertension, diabetes insulin-dependent, anxiety, hyperlipidemia, chronic back pain who presented to the emergency room because she was not feeling well and has been progressively feeling more and more tired. She states that she woke up yesterday, felt sick to her stomach with nausea. She denies any vomiting at that time. She states she has been sick for 3 weeks, feeling "lousy ". She has been working with her physical therapists trying to get strong enough however she has been progressively feeling weaker. Yesterday she could not get out of bed. She has been having a "hacking cough", nonproductive, for the past 4 weeks. She was put on Keflex at the beginning of December with no improvement. She went to see her primary care physician because she could not get in to see her after school caregiver Dr. Le fast enough and was started on an antihistamine. She has not started it yet. She had a chest x-ray which was read as negative. Patient complains of shortness of breath. Patient also complains of chills and was told she had a fever of 100.7 by the nurse that came to see her at her house. Her appetite is poor. She denies any burning with urination however she has urinary incontinence therefore she cannot tell she has urinary frequency. CBC/BMP: 01/06/18 1324 01/07/18 0742 Significant Findings Laboratory Tests Test 01/07/18 07:42 Blood Urea Nitrogen 40 MG/DL (7-18) Estimat Glomerular Filtration Rate 57 ML/MIN (>89) B-Type Natriuretic Peptide 269 PG/ML (0-100) Imaging Last Impressions Renal Ultrasound 01/07/18 0000 Signed Impressions: Service Date/Time: December 18:58 - CONCLUSION: No acute disease. Zheng Landin MD Chest X-Ray 01/03/18 1115 Signed Impressions: Service Date/Time: Wednesday, January 03, 2018 11:25 - CONCLUSION: Cardiomegaly. No focal infiltrate or pulmonary vascular congestion. Navneet Guevara MD CT Angiography 01/03/18 0000 Signed Impressions: Service Date/Time: Wednesday, January 03, 2018 13:21 - CONCLUSION: 1. No evidence of pulmonary embolism. 2. Minimal scattered fibrotic scarring and peripheral bleb formation bilaterally. 3. Cardiomegaly and coronary artery calcifications. 4. Mild splenomegaly. 5. Degenerative changes, scoliosis and multiple chronic compression deformities involving the thoracic spine. 6. Small hiatal hernia. Navneet Guevara MD PE at Discharge awake and alert anicteric irregular rhythm no rales no wheezes, equal breath sounds abdomen-soft, nontender extremities- no edema Pt update on day of discharge afebrile rate controlled- a fib Hospital Course 87 years old female -E coli sepsis secondary to UTI: on Rocephin IV every 24 hours. 01/03- started ID consulted for recommendation Renal Ultrasound-unremarkable ff Repeat blood cultures to ensure clearance- no growth for 2 days continue on Levaquin till 01/15 per ID recommendations MINERVA- improved underlying CKD stage III per daughter: Creatinine noted to be 1.52 with baseline of 0.82 on 04/03/16 per records (no recent Cr available). improved renal ultrasound negative COPD exacerbation with hypercapnic respiratory failure:- respiratory reece improving Chronic HAD Dr. Le-ff- - patient pulmologist- change to po prendisone continue home symbicort. azithromycin, hypothyroidism: Resume patient's home dose of Synthroid CHF: Stable. Heart healthy diet with fluid restriction at 1500 mL's per day. Continue patient's the Lasix. Replete potassium and continues potassium supplementation. Atrial fibrillation: Stable. on Pradaxa. Apparently per daughter she was supposed to be on digoxin however this is not listed on [facility]. At this time, since pt does have hx of CHF, on metoprolol 25mg po BID w holding parameters. continue Captopril. Lasix Cardiology ff- OP ff up with Dr. Salcedo Amlodipine up to 10 mg daily Hypertension: continue captopril, amlodipine. (per daughter pt does have stage III renal disease) Diabetes insulin-dependent: resume pt's home dose of levemir. cover w medium ISS. continue Januvia but renally dose it. monitor BS. anxiety: resume med Hyperlipidemia: resume med Chronic back pain: resume home meds. resume stool softeners as well. DVT prophylaxis- patient on Pradaxa PT/OT consult DC planning- SNF today Pt Condition on Discharge: Stable Discharge Disposition: Discharge to SNF Discharge Time: > 30 minutes Discharge Instructions DIET: Follow Instructions for: Heart Healthy Diet, Diabetic Diet Activities you can perform: Weight Bearing as Sydnee Activities to Avoid: Strenuous Activity Follow up Referrals: Cardiology - 1 Week with John Salcedo MD PCP Follow-up - 3-5 Days with Santos Aguirre M.d. Pulmonology - 1 Week with Kianna New Orders: COMP MET PROF ([facility]) - 01/11/18 New Medications: Oxygen (O2) (Oxygen (O2)) Device LITER YEISON.CANULA CONTINUOUS for Prevent Hypoxemia, #2 Oxygen Concentrator Portable Gaseous 2 L/min via Nasal Canula Continuous For 99 months Amlodipine (Norvasc) 10 Mg Tab 10 MG PO DAILY for HTN for 30 Days, #30 TAB Levofloxacin (Levaquin) 500 Mg Tablet 500 MG PO DAILY@1800 for Infection for 6 Days, #6 TAB Metoprolol Tartrate (Metoprolol Tartrate) 25 Mg Tab 25 MG PO Q12HR for HTN for 30 Days, TAB [Ipratropium [place]] () 0.5 MG/2.5 ML NEBU 0.5 MG NEB Q4HR NEB PRN for SOB/WHEEZING for 10 Days, ML Continued Medications: Alprazolam (Xanax) 0.25 Mg Tab 0.25 MG PO DAILY PRN for ANXIETY, TAB 0 Refills Budesonide-Formoterol Inh (Symbicort Inh) 160-4.5 Mcg/Act Aero 2 PUFF INH Q12HR, #1 INHALER 0 Refills Calcium Carbonate-Cholecalciferol (Calcium 500 +D) 500-400 Mg-Unit Tab 1 TAB PO DAILY for Calcium Supplement, TAB 0 Refills Captopril (Captopril) 50 Mg Tab 50 MG PO BIDAC, #60 TAB 0 Refills Take 1 hour before meals. Cholecalciferol (Vitamin D3) 1,000 Unit Tab 1000 UNITS PO DAILY for Nutritional Supplement, #1 BOTTLE 0 Refills Cyanocobalamin (Vitamin B-12) 1,000 Mcg Tab 1000 MCG PO DAILY for Nutritional Supplement, #1 BOTTLE 0 Refills Dabigatran (Pradaxa) 150 Mg Cap 150 MG PO BID for Blood Clot Prevention, #60 CAP 0 Refills Diphenhydramine HCl (Benadryl Allergy) 25 Mg Cap 1 CAP PO DAILY Duloxetine DR (Cymbalta DR) 20 Mg Capdr 20 MG PO DAILY, #30 CAP 0 Refills Furosemide (Furosemide) 40 Mg Tab 40 MG PO DAILY, #30 TAB 0 Refills Gabapentin (Gabapentin) 300 Mg Cap 300 MG PO TID, #90 CAP 0 Refills Insulin Detemir Inj (Levemir Inj) 1,000 unit/ 10 ML Vial 50 UNITS SQ AM for Blood Sugar Management, VIAL 0 Refills Do not mix with any other Insulin. Ipratropium HFA 12.9 GM Inh (Atrovent HFA 12.9 GM Inh) 17 Mcg/Actuation Aer 2 PUFF INH TID, #1 INHALER 0 Refills Levothyroxine (Levothyroxine) 100 Mcg Tab 100 MCG PO DAILY for Thyroid, #30 TAB 0 Refills Omeprazole Magnesium (Prilosec) 20 Mg Tab 1 CAP PO DAILY Polyethylene Glycol 3350 Powder (Polyethylene Glycol 3350 Powder) 17 Gram Pow 17 GM PO DAILY for Constipation, #1 BOTTLE 0 Refills Potassium Chloride ER (Potassium Chloride ER) 20 Meq Tab 20 MEQ PO DAILY for Electrolyte Replacement, #30 TAB 0 Refills Prednisone (Prednisone) 10 Mg Tab 10 MG PO DAILY, TAB 0 Refills Sennosides-Docusate Sodium (Docusate Sodium-Senna) 8.6-50 Mg Tab 1 TAB PO HS for Prevent Constipation, #30 TAB 0 Refills Sertraline (Zoloft) 100 Mg Tab 100 MG PO DAILY, #30 TAB 0 Refills Simvastatin (Simvastatin) 20 Mg Tab 20 MG PO DAILY for Cholesterol Management, #30 TAB 0 Refills Sitagliptin (Januvia) 100 Mg Tab 100 MG PO DAILY for Blood Sugar Management, #30 TAB 0 Refills Discontinued Medications: Amlodipine (Norvasc) 5 Mg Tab 5 MG PO DAILY for Blood Pressure Management, #30 TAB 0 Refills Bumetanide (Bumetanide) 1 Mg Tab 1 MG PO DAILY, #30 TAB 0 Refills Celecoxib (Celebrex) 200 Mg Cap 200 MG PO DAILY for Pain Management, CAP 0 Refills Cephalexin (Keflex) 500 Mg Cap 500 MG PO TID for Infection, CAP 0 Refills Losartan (Losartan) 50 Mg Tab 50 MG PO DAILY for Blood Pressure Management, #30 TAB 0 Refills Mauri Madrigal MD Jan 09, 2018 14:06
--- NOTE | 2018-01-14 11:49 | RSPPFT ---
DATE OF PROCEDURE: 01/07/18 COMMENTS: Spirometry demonstrates an FEV1 of 0.7 at 49% of predicted, FVC of 0.9 at 39%, FEV1/FVC ratio at 79%. The FEF 25-75 is 91% of predicted. Post-bronchodilator study demonstrates no significant change. Lung volumes were not completed. Flow volume loops suggest a restrictive pattern. IMPRESSION: 1. Moderately severe restrictive disease. 2. No significant change following use of bronchodilator.
--- NOTE | 2018-01-15 09:18 | RSPPFT ---
DATE OF PROCEDURE: 01/07/18 COMMENTS: Spirometry demonstrates an FEV1 of 0.7 at 49% of predicted, FVC of 0.9 at 39%, FEF 25-75 at 91%. Post-bronchodilator study demonstrated no significant change. Lung volumes were not completed. Flow volume loops suggest a restrictive pattern. IMPRESSION: 1. Moderately severe restrictive disease. 2. No significant change following use of bronchodilator.
== END 2018-01-09 16:36 | DRG 871 ==
LOC: NEPC 10:34 → NEDA 15:10 → N04B 17:29
PROVIDERS: ADMIT Internal Medicine; ATTEND Internal Medicine
PROC: 5A09357 Assistance with Respiratory Ventilation, Less than 24 Consecutive Hours, Continuous Positive Airway Pressure (ICD-10-PCS; principal; 2018-01-04)
DX: A41.51 Sepsis due to Escherichia coli [E. coli] (principal); J96.92 Respiratory failure, unspecified with hypercapnia; N17.9 Acute kidney failure, unspecified; E87.2 Acidosis; I13.0 Hypertensive heart and chronic kidney disease with heart failure and stage 1 through stage 4 chronic kidney disease, or unspecified chronic kidney disease; I50.9 Heart failure, unspecified; J44.1 Chronic obstructive pulmonary disease with (acute) exacerbation; E11.22 Type 2 diabetes mellitus with diabetic chronic kidney disease; E11.65 Type 2 diabetes mellitus with hyperglycemia; I48.2 Chronic atrial fibrillation; N18.3 Chronic kidney disease, stage 3 (moderate); K59.09 Other constipation; K21.9 Gastro-esophageal reflux disease without esophagitis; E03.9 Hypothyroidism, unspecified; E78.5 Hyperlipidemia, unspecified; G89.29 Other chronic pain; M54.5 Low back pain; I25.2 Old myocardial infarction; I25.10 Atherosclerotic heart disease of native coronary artery without angina pectoris; M19.90 Unspecified osteoarthritis, unspecified site; F41.9 Anxiety disorder, unspecified; J84.10 Pulmonary fibrosis, unspecified; Z79.01 Long term (current) use of anticoagulants; Z79.84 Long term (current) use of oral hypoglycemic drugs; Z85.3 Personal history of malignant neoplasm of breast; Z87.891 Personal history of nicotine dependence
CPT/HCPCS: 36600; 71045; 71275; 76775; 76937; 80048; 80053; 81001; 82550; 82805; 82948; 83605; 83735; 83880; 84100; 84484; 85007; 85025; 85027; 85610; 85730; 87040; 87077; 87086; 87186; 87205; 87804; 93005; 93306; 94003; 94618; 94640; 94664; 96365; 96375; J0696; J1644; J1815; J1940; J2920; J2930; J7030; J7040; J7512; J7644; P9612; Q9967